=== PATIENT | female | born 1950 | race Caucasian/White ===

== ENCOUNTER 2018-06-07 17:09 | Inpatient (IN) | payer MEDICARE, OTHER ==
[~2018-06-07] VITALS: Ht 162.6 cm; Wt 41.9 kg
--- NOTE | 2018-06-07 17:10 | NUR ---
BIB PRIVATE AMBULANCE FROM [facility] FOR SOB X 1 WEEK , VSS , PLACED ON 2LPM NC , CALLED RT FOR BREATHING TX
[2018-06-07 18:24] LABS: HEMATOCRIT 28 % (33-45); HEMOGLOBIN 9.3 g/dL (11.5-14.8); MEAN CORPUSCULAR HGB CONC 33 g/dl (31.0-36.0); MEAN CORPUSCULAR VOLUME 77 fL (82-100); PLATELET COUNT (AUTO) 229 /CMM (150-450); RDW COEFFICIENT OF VARIATION 20.1 (11.5-15.0); RED BLOOD CELL COUNT(AUTO) 3.66 MIL/uL (4.0-5.2); WHITE BLOOD COUNT (AUTO) 8.9 K/uL (4.3-11.0)
[2018-06-07 18:28] LABS: CALCIUM, SERUM 9.7 mg/dL (8.5-10.1); CARBON DIOXIDE 32 mmol/L (21-32); CHLORIDE 105 mmol/L (98-107); CREATININE 0.9 mg/dL (0.6-1.3); GLUCOSE 83 mg/dL (74-106); SODIUM SERUM 143 mmol/L (136-145); UREA NITROGEN, BLOOD 16 mg/dL (7-18)
[2018-06-07] MEDS ORDERED: IPRATROPIUM NEB FS 0.5 MG/2.5 ML AMPUL.NEB NEB ONE (18:30)
[2018-06-07] MEDS ORDERED: ALBUTEROL FS 2.5 MG/3 ML VIAL.NEB NEB ONE (18:30)
[2018-06-07] MEDS ORDERED: methylPREDNISolone SOD SUCC 125 MG/2ML VIAL IV ONE (18:30)
[2018-06-07] MEDS ORDERED: methylPREDNISolone SOD SUCC 125 MG/2ML VIAL ONE (18:33)
[2018-06-07 18:35] LABS: TROPONIN I < 0.017 ng/mL (0.00-0.056)
[2018-06-07 18:40] LABS: ALANINE AMINOTRANSFERASE 27 U/L (12-78); ALBUMIN 2.8 g/dL (3.4-5.0); ALKALINE PHOSPHATASE 137 U/L (46-116); ASPARTATE AMINOTRANSFERASE 32 U/L (15-37); B-TYPE NATRIURETIC PEPTIDE 27819 PG/ML (0-125); BILIRUBIN,DIRECT 0.2 mg/dL (0.0-0.2); BILIRUBIN,TOTAL 0.4 mg/dL (0.2-1.0)
--- NOTE | 2018-06-07 19:09 | NUR ---
CALLED RT FOR BREATHING TX
[2018-06-07] MEDS ORDERED: IPRATROPIUM NEB FS 0.5 MG/2.5 ML AMPUL.NEB ONE ×2 (19:16→20:40)
[2018-06-07] MEDS ORDERED: ALBUTEROL FS 2.5 MG/3 ML VIAL.NEB ONE ×2 (19:16→20:40)
--- NOTE | 2018-06-07 19:27 | NUR ---
CALLED [facility] FOR THIS PATIENT ENGINE MECHANIC MD AGOSTO WAS PAGED AND NOW SPEAKING TO DR KWOK.
[2018-06-07] MEDS ORDERED: FERR325T23 PO (19:28)
[2018-06-07] MEDS ORDERED: LISI-607 PO (19:28)
[2018-06-07] MEDS ORDERED: OXYB5TAB11 PO (19:28)
[2018-06-07] MEDS ORDERED: CARV3.122 PO (19:28)
[2018-06-07] MEDS ORDERED: ASPI-1169 PO (19:28)
[2018-06-07] MEDS ORDERED: DOCU100C36 PO (19:28)
[2018-06-07] MEDS ORDERED: GABA-532 PO (19:28)
[2018-06-07] MEDS ORDERED: METH10TA2 PO (19:28)
[2018-06-07] MEDS ORDERED: FLUO10TA PO (19:28)
[2018-06-07] MEDS ORDERED: DEXT15DR6 EACHEYE (19:28)
[2018-06-07] MEDS ORDERED: FURO20TA4 PO (19:28)
[2018-06-07] MEDS ORDERED: NITROGLYCERIN PACKET 1 GM PACKET TOP ONE (19:30)
[2018-06-07] MEDS ORDERED: FUROSEMIDE 40 MG/4 ML VIAL IV ONE (19:30)
[2018-06-07 19:32] LABS: LYMPHOCYTES % (MANUAL) 24 % (16-48); MONOCYTES % (MANUAL) 4 % (0-11.0); NEUTROPHILS % (MANUAL) 72 (42-76)
[2018-06-07] MEDS ORDERED: MAGNESIUM HYDROXIDE 30 ML UDC PO PRN (20:00)
[2018-06-07] MEDS ORDERED: Z GUARD REMEDY 2 OZ OINT TP PRN (20:00)
[2018-06-07] MEDS ORDERED: MAG HYDROX/AL HYDROX/SIMETH 30 ML UDC PO PRN (20:00)
[2018-06-07] MEDS ORDERED: DOCUSATE SODIUM 100 MG CAPSULE PO PRN (20:00)
[2018-06-07] MEDS ORDERED: ONDANSETRON HCL/PF 4 MG/2 ML VIAL IVP PRN (20:00)
[2018-06-07] MEDS ORDERED: ZOLPIDEM TARTRATE 5 MG TABLET PO PRN (20:00)
[2018-06-07] MEDS ORDERED: ALBUTEROL FS 2.5 MG/0.5 ML VIAL.NEB NEB PRN (20:00)
[2018-06-07] MEDS ORDERED: ACETAMINOPHEN 325 MG TABLET PO PRN (20:00)
[2018-06-07] MEDS ORDERED: IPRATROPIUM NEB FS 0.5 MG/2.5 ML AMPUL.NEB NEB PRN (20:00)
[2018-06-07] MEDS ORDERED: HYDROCODONE/APAP 5/325MG 1 EACH TABLET PO PRN (20:00)
--- NOTE | 2018-06-07 20:05 | NUR ---
CALLED NURSING SUP REQUESTED TELE BED FOR THIS PATIENT
[2018-06-07] MEDS ORDERED: FUROSEMIDE 40 MG/4 ML VIAL ONE (20:08)
[2018-06-07] MEDS ORDERED: NITROGLYCERIN PACKET 1 GM PACKET ONE (20:08)
--- NOTE | 2018-06-07 20:53 | NUR ---
ECHOCARDIOGRAM AT BEDSIDE FOLLOWING BREATHING TX
--- NOTE | 2018-06-07 21:08 | NUR ---
PT REFUSED TO DO ECHOCARDIOGRAM DUE TO DIFFICULTY IN BREATHING. TRY LATER.
--- NOTE | 2018-06-07 21:22 | NUR ---
REAL ESTATE AGENCY PRINCIPAL OPENING NOTES: RECEIVED PT ON 2LPM VIA NC AND IS TOLERATING WELL. NO SOB NOTED. NO S/S OF DISTRESS. PT IS A/OX4. PT HAS IV AND IS CURRENTLY H/L. PT TO BE PLACED ON TELE BOX. CALL LIGHT WITHIN PT'S REACH. BED KEPT IN LOW, LOCKED POSITION, HIGH-FOWLERS, AND SIDE RAILS X 2UP. BED ALARM ACTIVATED. WILL CONTINUE TO MONITOR PT. Addendum: 06/08/18 at 0523 by ANUP MICHAEL RN NOTED NITROBID PATCH ON CHEST.
[2018-06-07 21:43] VITALS: BP 157/81
--- NOTE | 2018-06-07 22:13 | NUR ---
PT AGAIN REFUSED ECHO TEST AND WANTS TO HAVE IT DONE BRIAN. INFORMED ATTENDING RN (HUE)
--- NOTE | 2018-06-07 22:16 | NUR ---
HYPERION ANALYST NOTES: DR. TRINY Graf AT BEDSIDE.
[2018-06-07] MEDS ORDERED: LEVOFLOXACIN 750 MG /D5W 150ML 150 ML IV ONE (22:40)
[2018-06-07] MEDS: ENOXAPARIN SODIUM 40 MG/0.4 ML DISP.SYRIN SQ SCH (22:43)
[2018-06-07] MEDS: LEVOFLOXACIN 750 MG /D5W 150ML 750 MG in PREMIX 1 EA IV SCH (22:47)
[2018-06-07] MEDS: methylPREDNISolone SOD SUCC 40 MG/ML VIAL IV SCH (23:42)
[2018-06-08 00:48] VITALS: BP 133/84
[2018-06-08] MEDS: FUROSEMIDE 40 MG/4 ML VIAL IV SCH ×4 (01:16→17:10)
--- NOTE | 2018-06-08 03:33 | NUR ---
FACTORY SUPERVISOR NOTES: PT'S MONEY PLACED IN [employer]. TOTAL OF $240 DOLLARS. COSIGNED WITH TORREY KWOK[employer].
[2018-06-08 04:32] VITALS: BP 131/84
[2018-06-08] MEDS: methylPREDNISolone SOD SUCC 40 MG/ML VIAL IV SCH ×3 (05:32→17:10)
--- NOTE | 2018-06-08 07:10 | NUR ---
ENTRY LEVEL ELECTRICIAN INITIAL NOTES Report received at bedside. Patient received in bed, intermittently sleeping, easily aroused, verbally responsive. On continuous oxygen therapy @2LPM via nasal cannula with no SOB noted. Came in for CHF, COPD exacerbation. Tele: Sinus Shimon; HR 40s-50s. Bedside commode noted. Left hand #20g IV access noted. Safety measures in place. Will continue to monitor and assess patient.
[2018-06-08 07:28] LABS: CALCIUM, SERUM 9.3 mg/dL (8.5-10.1); CREATININE 1.2 mg/dL (0.6-1.3); MAGNESIUM 1.7 mg/dL (1.8-2.4); PHOSPHORUS 4.8 mg/dL (2.5-4.9); POTASSIUM 4.2 mmol/L (3.5-5.1)
[2018-06-08 07:33] LABS: THYROID STIMULATING HORMONE 0.753 uIU/mL (0.358-3.74)
[2018-06-08 08:00] VITALS: BP 135/81
[2018-06-08] MEDS: POLYVINYL ALCOHOL 15 ML BOTTLE OP SCH ×2 (08:39→16:31)
[2018-06-08] MEDS: LISINOPRIL (5MG) 5 MG TABLET PO SCH (08:41)
[2018-06-08] MEDS: FERROUS SULFATE (325 MG) 325 MG/TAB TABLET PO SCH ×2 (08:41→16:30)
[2018-06-08] MEDS: GABAPENTIN 100 MG CAPSULE PO SCH ×3 (08:41→16:30)
[2018-06-08] MEDS: FLUOXETINE HCL 20 MG/5 ML UDC PO SCH (08:41)
[2018-06-08] MEDS: OXYBUTYNIN CHLORIDE 5 MG TABLET PO SCH ×3 (08:41→16:29)
[2018-06-08 08:57] LABS: IRON, SERUM 33 ug/dl (50-175); TOTAL IRON BINDING CAPACITY 406 ug/dl (250-450)
[2018-06-08] MEDS ORDERED: ASPIRIN 81 MG TAB.CHEW PO SCH (09:00)
[2018-06-08 09:08] LABS: CHOLESTEROL 114 mg/dL (<200); FERRITIN 88 ng/mL (8-388); HDL CHOLESTEROL 60 mg/dL (40-60); LDL 50 mg/dL (0-99); TRIGLYCERIDES 46 mg/dL (30-150)
[2018-06-08] MEDS: Magnesium 1GM/D5W 100ML PREMIX 100 ML IV SCH ×2 (09:15→10:04)
[2018-06-08 10:36] LABS: HEMATOCRIT 33 % (33-45); HEMOGLOBIN 9.9 g/dL (11.5-14.8); MEAN CORPUSCULAR HGB CONC 30 g/dl (31.0-36.0); MEAN CORPUSCULAR VOLUME 79 fL (82-100); PLATELET COUNT (AUTO) 250 /CMM (150-450); RDW COEFFICIENT OF VARIATION 21.9 (11.5-15.0); RED BLOOD CELL COUNT(AUTO) 4.16 MIL/uL (4.0-5.2); WHITE BLOOD COUNT (AUTO) 7.6 K/uL (4.3-11.0)
[2018-06-08 11:44] LABS: LYMPHOCYTES % (MANUAL) 7 % (16-48); MONOCYTES % (MANUAL) 5 % (0-11.0); NEUTROPHILS % (MANUAL) 88 (42-76)
--- NOTE | 2018-06-08 12:08 | NUR ---
MS RN - Rx VERIFICATION NOTES Called [facility] [phone] and spoke to Aide ([employer]) to verify Methadone dose and frequency given while pt was at their facility. Relayed information to Hugh ([facility]).
[2018-06-08] MEDS: METHADONE HCL 10 MG TABLET PO SCH (12:58)
--- NOTE | 2018-06-08 13:03 | NUR ---
MS RN - NOTES When patient was asked for pain scale/description, pt denies any pain at the moment. But patient stated that Methadone helps relieved the pain for 2 years now. Explained risks vs benefits
[2018-06-08 16:00] VITALS: BP 130/74
--- NOTE | 2018-06-08 19:18 | NUR ---
MS RN CLOSING NOTES Report given at bedside. Patient remained in bed, intermittently dosing, easily aroused. Alert and oriented x4, verbally responsive. Denies any pain. On continuous oxygen therapy @2-3lpm via nasal cannula with no SOB/labored breathing noted. Not in any type of distress. IV on left hand@20g SL: patent and intact. Afebrile. Magnesium replaced. Diet: 2g NA with Ensure Enlive BID per diet recommendation. Continue on steroids, diuretics, atbx and breathing treatment. Bed in locked and lowest position with bed alarm on and call light within reach. Commode at bedside. Continue to reinforce to call for assistance with anything especially getting up from bed to commode. All needs anticipated and met. Endorsed to oncoming shift nurse.
--- NOTE | 2018-06-08 19:30 | NUR ---
RN INITIAL NOTES Patient received in bed, a & o x 4, sitting in a chair next to her bed, verbally responsive. On continuous oxygen therapy @2LPM via nasal cannula with no SOB noted. no c/o pain, no acute distress noted. IV access to left hand, SL. no s/s of infection noted. Came in for CHF, COPD exacerbation. Bedside commode noted. bed in low locked position. Safety measures in place. call light within reach. Will continue to monitor the patient closely.
[2018-06-08 20:00] VITALS: BP 107/69
--- NOTE | 2018-06-08 21:45 | NUR ---
GRAND DAUGHTER VISITED PATIENT'S GRAND DAUGHTER VISITED, PT REQUESTED TO GET $40 FROM [employer] TO GIVE TO HER GRAND DTR. MFG ASSOC SUNDAR MADE AWARE, $ 40 GIVEN TO THE PATIENT FROM [employer] & REMAINING AMOUNT & ITEMS PUT BACK IN THE [employer]AF[employer] BY RN & MFG ASSOC PER PROTOCOL. WILL CONTINUE TO MONITOR THE PT CLOSELY.
[2018-06-08] MEDS: ENOXAPARIN SODIUM 40 MG/0.4 ML DISP.SYRIN SQ SCH (21:56)
[2018-06-08] MEDS: LEVOFLOXACIN 750 MG /D5W 150ML 750 MG in PREMIX 1 EA IV SCH (23:06)
[2018-06-09] MEDS: methylPREDNISolone SOD SUCC 40 MG/ML VIAL IV SCH ×4 (00:08→17:50)
--- NOTE | 2018-06-09 06:00 | NUR ---
MS RN NOTE PATIENT'S WEIGHT WAS CHECKED BY MERYL JAMIL, ON CHAIR SCALE, NOT ON BED & NOTED TO BE 107 LBS IN AM.
--- NOTE | 2018-06-09 06:23 | NUR ---
MS RN CLOSING NOTES PT SLEPT INTERMITTENTLY AT NIGHT. A & O X 4, NO SOB, NO ACUTE DISTRESS NOTED. NO C/O PAIN VERBALIZED. AMBULATORY TOLERATED WITH WALKER. IV ACCESS TO LEFT HAND, SL, INTACT PATENT. HAD SNACKS AT NIGHT, TOLERATED WELL. ALL DUE MEDS GIVEN ORDERED. USES BSC. ON O2 VIA NC, SATTING @ 96%. ALL NEEDS MET. SAFETY MEASURES IN PLACE. BED IN LOW LOCKED POSITION. CALL LIGHT WITHIN REACH. WILL ENDORSE TO AM RN FOR CONTINUITY OF CARE.
[2018-06-09 07:40] LABS: ALBUMIN 2.9 g/dL (3.4-5.0); BILIRUBIN,TOTAL 0.3 mg/dL (0.2-1.0); CALCIUM, SERUM 9.2 mg/dL (8.5-10.1); CREATININE 1.4 mg/dL (0.6-1.3); MAGNESIUM 2.3 mg/dL (1.8-2.4); PHOSPHORUS 4.8 mg/dL (2.5-4.9); POTASSIUM 4.3 mmol/L (3.5-5.1); TOTAL PROTEIN, SERUM 7.4 g/dL (6.4-8.2)
--- NOTE | 2018-06-09 07:59 | NUR ---
MS RN INITIAL NOTES Report received. Patient received in chair, awake and watching tv. Alert and oriented x4, verbally responsive. Denies any pain at the moment. On oxygen therapy with no SOB noted. Not in any type of distress. Reported weight 107lbs using chair scale. On daily weight monitoring. Safety measures in place. Will continue to monitor and assess patient
[2018-06-09 08:00] VITALS: BP 127/89
[2018-06-09] MEDS: METHADONE HCL 10 MG TABLET PO SCH (08:50)
[2018-06-09] MEDS: DOCUSATE SODIUM 100 MG CAPSULE PO SCH ×2 (08:50→16:32)
[2018-06-09] MEDS: GABAPENTIN 100 MG CAPSULE PO SCH ×3 (08:50→16:32)
[2018-06-09] MEDS: OXYBUTYNIN CHLORIDE 5 MG TABLET PO SCH ×3 (08:52→16:32)
[2018-06-09] MEDS: LISINOPRIL (5MG) 5 MG TABLET PO SCH (08:52)
[2018-06-09] MEDS: FLUOXETINE HCL 20 MG/5 ML UDC PO SCH (08:53)
[2018-06-09] MEDS: POLYVINYL ALCOHOL 15 ML BOTTLE OP SCH ×2 (08:54→16:32)
--- NOTE | 2018-06-09 08:55 | NUR ---
MS RN - MANUAL ADMINISTRATION Articificial tears - patient removed barcode. unable to scan eye drops
[2018-06-09 09:58] LABS: HEMATOCRIT 32 % (33-45); HEMOGLOBIN 9.6 g/dL (11.5-14.8); MEAN CORPUSCULAR HGB CONC 30 g/dl (31.0-36.0); MEAN CORPUSCULAR VOLUME 79 fL (82-100); PLATELET COUNT (AUTO) 265 /CMM (150-450); RDW COEFFICIENT OF VARIATION 22.1 (11.5-15.0); RED BLOOD CELL COUNT(AUTO) 4.02 MIL/uL (4.0-5.2); WHITE BLOOD COUNT (AUTO) 16.2 K/uL (4.3-11.0)
[2018-06-09 10:19] LABS: BAND % (MANUAL) 1 % (0.0-5.0); LYMPHOCYTES % (MANUAL) 1 % (16-48); MONOCYTES % (MANUAL) 3 % (0-11.0); NEUTROPHILS % (MANUAL) 95 (42-76)
[2018-06-09] MEDS: SOD FERRIC GLUC 125 MG in IV NS 0.9% 100 ML IV SCH (14:02)
--- NOTE | 2018-06-09 14:15 | NUR ---
MS RN NOTES Caught patient had a cigarette. Explained to patient that the oxygen is on just in case she experiences SOB and it is highly dangerous to smoke in the hospital, especially inside the room with oxygen turned on. Patient verbalized understanding. handed hidden cigarettes in purse to me. Placed in nurses' station.
[2018-06-09 16:00] VITALS: BP 124/75
--- NOTE | 2018-06-09 18:59 | NUR ---
MS RN CLOSING NOTES Patient in bed, awake, and verbally responsive. Alert and priented x4. Denies any pain at the moment. On oxygen therapy PRN for SOB. No SOB/labored breathing noted. Not in any type of distress. IV on left hand #20g: patent and intact. Afebrile. Continue on current treatment: antibiotics, steroids, pain mgmt, diuretics, and breathing tx. Bed in locked and lowest position with call light within reach. Continue to encourage patient to increase oral/caloric intake. Reinforce to call for assistance. Non-compliant with smoking and becomes verbally aggressive. On contact isolation for MRSA nares. All needs anticipated and met. All due meds given and tolerated. Safety measures in place. Will endorse to oncoming shift nurse
[2018-06-09 20:00] VITALS: BP 136/74
--- NOTE | 2018-06-09 20:00 | NUR ---
MS NIDIA INITIAL NOTES RECEIVED REPORT FROM AM NURSE WHILE CHECKING THE PATIENT. PT SITTING ON THE CHAIR WHILE EATING HER FOODS. DENIES ANY PAIN OR ANY DISCOMFORT. BREATHING EVEN AND NON-LABORED , NOT IN ANY ACUTE DISTRESS NOTED. ON CONTACT ISOLATION MRSA NARES. ISOLATION PRECAUTION IMPLEMENTED AND OBSERVED. KEPT HER WARM AND COMFORTABLE AT ALL TIMES. PLACE CALL LIGHT AT REACH.WILL CONTINUE MONITORING.
[2018-06-09] MEDS: MUPIROCIN OINT 2% 22 GM TUBE SCH (22:20)
[2018-06-09] MEDS: ENOXAPARIN SODIUM 40 MG/0.4 ML DISP.SYRIN SQ SCH (22:22)
[2018-06-09] MEDS: LEVOFLOXACIN 750 MG /D5W 150ML 750 MG in PREMIX 1 EA IV SCH (22:28)
--- NOTE | 2018-06-10 | NUR ---
MS CLINICAL DOCUMENTATION NURSE NOTES SLEEPING AT THIS TIME WITHOUT ANY ACUTE DISTRESS NOTED. KEPT HER WARM AND COMFORTABLE AT ALL TIMES. WILL CONTINUE MONITORING. PLACE CALL LIGHT AT REACH.
[2018-06-10] MEDS: methylPREDNISolone SOD SUCC 40 MG/ML VIAL IV SCH ×4 (01:10→16:50)
--- NOTE | 2018-06-10 07:30 | NUR ---
MS POTTER OR CERAMIC ARTIST CLOSING NOTES PT SLEEPING AT THIS TIME. BREATHING EVEN AND NON-LABORED. STABLE MOISES THE NIGHTS. ALL DUE MEDS GIVEN AND ALL NEEDS MET. KEPT HER WARM AND COMFORTABLE AT ALL TIMES. PLACE CALL LIGHT AT REACH. ENDORSE TO AM NURSE FOR CONTINUITY OF CARE.
[2018-06-10 08:00] VITALS: BP 134/98
--- NOTE | 2018-06-10 08:00 | NUR ---
MS HSIEH AM NOTES Report received. Patient received in chair, awake and watching tv. Alert and oriented x4, verbally responsive. Denies any pain at the moment. On room air with no SOB noted. Not in any type of distress. Ambulates ad pierce using FWW.On MRSA contact isolation precautions for MRSA Nares.Reported weight 107lbs using chair scale. On daily weight monitoring. Safety measures in place. Will continue to monitor and assess patient.Call light placed within reach.
[2018-06-10] MEDS: FLUOXETINE HCL 20 MG/5 ML UDC PO SCH (09:20)
[2018-06-10] MEDS: MUPIROCIN OINT 2% 22 GM TUBE SCH (09:20)
[2018-06-10] MEDS: DOCUSATE SODIUM 100 MG CAPSULE PO SCH ×2 (09:21→16:29)
[2018-06-10] MEDS: OXYBUTYNIN CHLORIDE 5 MG TABLET PO SCH ×3 (09:21→16:29)
[2018-06-10] MEDS: GABAPENTIN 100 MG CAPSULE PO SCH ×3 (09:25→16:29)
[2018-06-10] MEDS: LISINOPRIL (5MG) 5 MG TABLET PO SCH (09:25)
[2018-06-10] MEDS: METHADONE HCL 10 MG TABLET PO SCH (09:26)
--- NOTE | 2018-06-10 10:00 | NUR ---
SEEN BY DR MONTES WALKING AROUND THE HALLWAY WITH MANUFACTURING TEACHER ASSIST ON ROOM AIR O2 SAT RANGING FROM 99-100% WITH NO C/O SOB OR DISTRESS.DR MONTES VERBALIZED THAT ITS OK TO DC PT WITHOUT O2.PT ALSO ASKS TO SMOKE OUTSIDE ACCOMPANIED BY MANUFACTURING TEACHER.NO DISTRESS NOTED.
[2018-06-10] MEDS: POLYVINYL ALCOHOL 15 ML BOTTLE OP SCH ×2 (10:47→16:29)
[2018-06-10] MEDS: SOD FERRIC GLUC 125 MG in IV NS 0.9% 100 ML IV SCH (15:20)
[2018-06-10 16:00] VITALS: BP 132/76
--- NOTE | 2018-06-10 16:21 | NUR ---
DISCHARGE INSTRUCTIONS AND RX GIVEN TO THE PT.IV H/L WAS REMOVED BY PT HERSELF.NO BLEEDING NOTED.AWAITING FOR THE RN ASSISTANT WOMEN'S BASKETBALL COACH'S AVAILABILITY TO OPEN THE SAFE TO GET PT'S $200.PT DENIES ANY DISTRESS OR DISCOMFORT.PT WALKING AROUND HER ROOM WITH NO C/O SOB OR DISTRESS NOTED.
--- NOTE | 2018-06-10 18:00 | NUR ---
DISCHARGED PT BACK TO [facility] VIA [facility]I VOUCHER WITH STABLE V/S DENYING ANY PAIN OR DISTRESS.BROUGHT THE MOBILE O2 TANK,HER $200,CA ID,PURSE,BELONGINGS AND CREDIT CARD.
== END 2018-06-10 18:04 | DRG 139 ==
LOC: ER 17:26 → TELE 21:08 → MED 06-08 12:52
DX: J15.9 Unspecified bacterial pneumonia (principal); I50.43 Acute on chronic combined systolic (congestive) and diastolic (congestive) heart failure; E44.0 Moderate protein-calorie malnutrition; K74.60 Unspecified cirrhosis of liver; I13.0 Hypertensive heart and chronic kidney disease with heart failure and stage 1 through stage 4 chronic kidney disease, or unspecified chronic kidney disease; N18.3 Chronic kidney disease, stage 3 (moderate); J44.0 Chronic obstructive pulmonary disease with (acute) lower respiratory infection; J44.1 Chronic obstructive pulmonary disease with (acute) exacerbation; B19.20 Unspecified viral hepatitis C without hepatic coma; E83.42 Hypomagnesemia; D63.8 Anemia in other chronic diseases classified elsewhere; F17.210 Nicotine dependence, cigarettes, uncomplicated; F20.9 Schizophrenia, unspecified; E88.09 Other disorders of plasma-protein metabolism, not elsewhere classified; F19.11 Other psychoactive substance abuse, in remission; F11.10 Opioid abuse, uncomplicated; Z68.1 Body mass index [BMI] 19.9 or less, adult
CPT/HCPCS: 36415; 71045-TC; 80048-TC; 80053-TC; 80061-TC; 80076-TC; 82728-TC; 83540-TC; 83735-TC; 83880; 84100-TC; 84443-TC; 84484-TC; 85025-TC; 87081-TC; 93307-TC; A4216; A4606; G0378; J1650; J1940; J1956; J2916; J2920; J2930; J3475; J7030; J7050; Z7610

== ENCOUNTER 2018-09-15 00:37 | Emergency (ER) | payer MEDICARE, OTHER ==
[~2018-09-15] VITALS: Ht 162.6 cm; Wt 49.9 kg
[~2018-09-15 00:37] MED LIST: ASPI-1169 PO; CARV3.122 PO; DEXT15DR6 EACHEYE; DOCU100C36 PO; FERR325T23 PO; FLUO10TA PO; FURO20TA4 PO; GABA-532 PO; LISI-607 PO; METH10TA2 PO; OXYB5TAB11 PO
[2018-09-15 01:00] VITALS: BP 132/92
--- NOTE | 2018-09-15 01:00 | NUR ---
PT BIB PA. COMP OF HAVING A FALL OUT OF BED R KNEE PAIN NOTED. NO HEAD INJURY. NO AUCTE DISTRESS AT THIS TIME. PT AOX3. AWAITING EVAL.
--- NOTE | 2018-09-15 02:05 | NUR ---
PT REFUSING ALL LABS/IMAGING AND CARE FROM STAFF. BEING SIGNED AMA AND TRANSFERRED TO FACILITY.
== END 2018-09-15 02:08 | disposition left against medical advice (07) ==
LOC: ER 00:48
DX: M25.561 Pain in right knee (principal); I13.0 Hypertensive heart and chronic kidney disease with heart failure and stage 1 through stage 4 chronic kidney disease, or unspecified chronic kidney disease; N18.3 Chronic kidney disease, stage 3 (moderate); I50.9 Heart failure, unspecified; J44.9 Chronic obstructive pulmonary disease, unspecified; F20.9 Schizophrenia, unspecified; F32.9 Major depressive disorder, single episode, unspecified; Z98.890 Other specified postprocedural states; F17.200 Nicotine dependence, unspecified, uncomplicated; Z79.82 Long term (current) use of aspirin; Z79.899 Other long term (current) drug therapy; W06.XXXA Fall from bed, initial encounter; Y93.89 Activity, other specified; Y92.89 Other specified places as the place of occurrence of the external cause; Y99.8 Other external cause status

== ENCOUNTER 2019-09-13 15:14 | Inpatient (IN) | payer MEDICARE, OTHER ==
[~2019-09-13] VITALS: Ht 162.6 cm; Wt 58.1 kg
[~2019-09-13 15:14] MED LIST changes: -OXYB5TAB11 PO; +OXYB5TAB16 PO
[2019-09-13] MEDS ORDERED: OFLO5DRO6 LEFTEYE (15:44)
[2019-09-13] MEDS ORDERED: PRED5DRO17 LEFTEYE (15:44)
[2019-09-13] MEDS ORDERED: KETO5DRO39 LEFTEYE (15:44)
[2019-09-13] MEDS ORDERED: DIPH25CA46 PO (15:44)
[2019-09-13] MEDS ORDERED: OLAN2.5T3 PO (15:44)
[2019-09-13] MEDS ORDERED: ATOR40TA PO (15:44)
[2019-09-13] MEDS ORDERED: SENN-261 PO (15:44)
[2019-09-13] MEDS ORDERED: TRAM50TA2 PO (15:44)
--- NOTE | 2019-09-13 16:40 | NUR ---
jyoti 68 year old female sent by PMD due to abnormal BUN/crea. alert and oriented x2, breathing even and unlabored with no distress noted. waiting to be seen by
--- NOTE | 2019-09-13 17:38 | NUR ---
cardio tech at bedside
[2019-09-13 18:06] LABS: BASOPHILS % (AUTO) 0.4 % (0.0-2.0); HEMATOCRIT 33 % (33-45); HEMOGLOBIN 10.8 g/dL (11.5-14.8); LYMPHOCYTES # (AUTO) 1.7 /CMM (0.8-4.8); LYMPHOCYTES % (AUTO) 18.2 % (20.0-44.0); MEAN CORPUSCULAR HGB CONC 32 g/dl (31.0-36.0); MEAN CORPUSCULAR VOLUME 87 fL (82-100); MONOCYTES # (AUTO) 0.9 /CMM (0.1-1.30); MONOCYTES % (AUTO) 9.1 % (2.0-12.0); NEUTROPHILS # (AUTO) 6.8 /CMM (1.8-8.9); NEUTROPHILS % (AUTO) 71.3 % (43.0-81.0); PLATELET COUNT (AUTO) 159 /CMM (150-450); RED BLOOD CELL COUNT(AUTO) 3.83 MIL/uL (4.0-5.2); WHITE BLOOD COUNT (AUTO) 9.5 K/uL (4.3-11.0)
--- NOTE | 2019-09-13 18:18 | NUR ---
REPORT WAS GIVEN TO OVIDIO
[2019-09-13 18:24] LABS: ALBUMIN 1.6 g/dL (3.4-5.0); BILIRUBIN,TOTAL 0.3 mg/dL (0.2-1.0); CALCIUM, SERUM 8.7 mg/dL (8.5-10.1); CREATININE 4.2 mg/dL (0.6-1.3); TOTAL PROTEIN, SERUM 6.1 g/dL (6.4-8.2)
--- NOTE | 2019-09-13 18:57 | NUR ---
PAGED DR LOWERY FOR ADMISSION
[2019-09-13] MEDS ORDERED: SODIUM POLYSTYRENE SULFONATE 15 G/60 ML BOTTLE PO ONE (19:00)
[2019-09-13] MEDS ORDERED: INSULIN REGULAR, HUMAN 100 UNIT/ML 10 ML VIAL IV ONE (19:00)
[2019-09-13] MEDS ORDERED: DEXTROSE 50%-WATER 50 ML DISP.SYRIN IV ONE (19:00)
[2019-09-13] MEDS ORDERED: ALBUTEROL FS 2.5 MG/3 ML VIAL.NEB NEB ONE (19:00)
[2019-09-13] MEDS ORDERED: SODIUM POLYSTYRENE SULFONATE 15 G/60 ML BOTTLE ONE (19:02)
[2019-09-13] MEDS ORDERED: DEXTROSE 50%-WATER 50 ML DISP.SYRIN ONE (19:02)
[2019-09-13] MEDS ORDERED: INSULIN REGULAR, HUMAN 100 UNIT/ML 10 ML VIAL ONE (19:02)
--- NOTE | 2019-09-13 19:12 | NUR ---
bs 109
[2019-09-13] MEDS ORDERED: ALBUTEROL FS 2.5 MG/3 ML VIAL.NEB ONE ×2 (19:21→20:04)
--- NOTE | 2019-09-13 19:21 | NUR ---
sow farm barn technician at bedside
--- NOTE | 2019-09-13 19:39 | NUR ---
PT RECEIVED FROM [facility] FOR KEO
[2019-09-13 20:00] VITALS: BP 143/109
--- NOTE | 2019-09-13 20:21 | NUR ---
REPORT CALLED TO [facility]. WILL TRANSPORT PT VIA ACLS PROTOCOL.
--- NOTE | 2019-09-13 20:25 | NUR ---
MADE AWARE OF BP 201/110. NNO RECEIVED AT THIS TIME
[2019-09-13] MEDS ORDERED: hydrALAZINE HCL IV 20 MG VIAL ONE (20:27)
[2019-09-13] MEDS: hydrALAZINE HCL IV 20 MG VIAL IV PRN (20:31)
--- NOTE | 2019-09-13 20:31 | NUR ---
RECEIVED ORDER TO GIVE APRESOLINE 10MG IV X 1 DOSE. BP WAS NOTEED AT 165/104 PRIOR TO ADMIN. MADE AWARE. ORDER TO CONTINUE.
--- NOTE | 2019-09-13 21:08 | NUR ---
PT TRANSPORTED TO UNIT ON GURNEY WITH EMT AND RN AT BEDSIDE W/ ACLS PROTOCOL. NAD NOTED DURING TRANSPORT.
--- NOTE | 2019-09-13 22:00 | NUR ---
BABBITTER NOTES ATTACHED TO CAREER TECHNICAL EDUCATION INSTRUCTOR WITH NSR AT 95bpm. CALLED FOR ADMISSION ORDERS PER CHAIN SALES REPRESENTATIVE DR.DAVID MATAMOROS IS THE ON-CALL, LEFT A MESSAGE.
--- NOTE | 2019-09-13 22:00 | NUR ---
MERCHANDISE HANDLERBANKING MANAGEMENT CONSULTING MANAGER NOTES RECEIVED PATIENT FROM ER VIA RNEY ACCOMPANIED BY ER STAFF. ALERT AND ORIENTED X 3 VERBALLY RESPONSIVE AND ABLE TO FOLLOW DIRECTIONS. BREATHING REGULAR AND UNLABORED ON ROOM AIR. RIGHT HAND G20 IV LINE INTACT AND PATENT, FLUSHING WELL WITH NO BLEEDING OR S/S OF INFILTRATION NOTED. BODY ASSESSMENT DONE, SEEN WITH BOTH LOWER LEG WOUNDS AND SCABS AND UMBILICAL AREA HERNIA. PHOTOS TAKEN, ATTACHED TO CHART. BELONGINGS CHECKED BY WATCH ASSEMBLY INSTRUCTOR ACCOUNTED BY THE PATIENT. PATIENT WISHES TO BE FULL CODE. NO COMPLAINTS OF PAIN/DISCOMFORT REPORTED. BED LOW AND LOCKED ON SEMI FOWLERS POSITION. CALL LIGHT IN REACH. WILL CONTINUE TO MONITOR.
--- NOTE | 2019-09-13 22:30 | NUR ---
MARKET SUPERINTENDENT NOTES CALLED DR.DAVID MATAMOROS AGAIN AND LAYO STACY, LEFT A MESSAGE AGAIN.
--- NOTE | 2019-09-13 23:00 | NUR ---
PIPELINE TECHNICIAN NOTES CALLED FOR THE 3RD TIME SPOKE TO WITH ORDERS RECEIVED AND CARRIED OUT. NOTIFIED MD REGARDING PATIENT WISH TO BE FULL CODE.
--- NOTE | 2019-09-14 | NUR ---
COURT RN NOTES SPOKE TO LAYO STACY WITH ORDERS RECEIVED AND CARRIED OUT.
[2019-09-14 00:01] VITALS: BP 160/101
[2019-09-14] MEDS: IV NS 0.9% 1,000 ML BAG IV PRN (01:20)
[2019-09-14] MEDS: hydrALAZINE HCL IV 20 MG VIAL IV PRN ×3 (01:23→17:44)
--- NOTE | 2019-09-14 01:23 | NUR ---
TRADE EMBALMER NOTES BP 164/101 HR 95, HYDRALAZINE 10MG GIVEN VIA IV PUSH. WILL CONTINUE TO MONITOR.
--- NOTE | 2019-09-14 02:00 | NUR ---
ENTERTAINMENT DANCER NOTES RIGHT HAND IV LINE INFILTRATED, NEW LINE REINSERTED ON LEFT HAND G24 WITH BLOOD BACKFLOW INFUSING WELL.
[2019-09-14 04:00] VITALS: BP 169/98
--- NOTE | 2019-09-14 05:25 | NUR ---
THROUGH FREIGHT ENGINEER NOTES BP 169/98 HR 94, HYDRALAZINE 10MG GIVEN VIA IV PUSH. WILL CONTINUE TO MONITOR.
--- NOTE | 2019-09-14 06:20 | NUR ---
COLOR ADVISER CLOSING NOTES PATIENT IN BED ALERT AND ORIENTED X 3 VERBALLY RESPONSIVE AND ABLE TO FOLLOW DIRECTIONS. BREATHING REGULAR AND UNLABORED ON ROOM AIR. RIGHT HAND G20 IV LINE INTACT AND INFUSING WELL. COMPLAINED OF 3/10 RIGHT LEG PAIN, NON-PHARMACOLOGICAL INTERVENTIONS PROVIDED. BED LOW AND LOCKED ON SEMI FOWLERS POSITION. CALL LIGHT IN REACH. WILL ENDORSE TO MORNING SHIFT FOR KEO.
[2019-09-14 07:21] LABS: BASOPHILS # (AUTO) 0.1 /CMM (0.0-0.2); BASOPHILS % (AUTO) 0.5 % (0.0-2.0); EOSINOPHILS % (AUTO) 0.5 % (0.0-6.0); HEMATOCRIT 33 % (33-45); HEMOGLOBIN 10.7 g/dL (11.5-14.8); LYMPHOCYTES # (AUTO) 1.8 /CMM (0.8-4.8); LYMPHOCYTES % (AUTO) 13.9 % (20.0-44.0); MEAN CORPUSCULAR HGB CONC 32 g/dl (31.0-36.0); MEAN CORPUSCULAR VOLUME 85 fL (82-100); MONOCYTES # (AUTO) 1.2 /CMM (0.1-1.30); MONOCYTES % (AUTO) 9.5 % (2.0-12.0); NEUTROPHILS # (AUTO) 9.5 /CMM (1.8-8.9); NEUTROPHILS % (AUTO) 75.6 % (43.0-81.0); PLATELET COUNT (AUTO) 182 /CMM (150-450); RED BLOOD CELL COUNT(AUTO) 3.92 MIL/uL (4.0-5.2); WHITE BLOOD COUNT (AUTO) 12.6 K/uL (4.3-11.0)
[2019-09-14 07:46] LABS: THYROID STIMULATING HORMONE 2.187 uIU/mL (0.358-3.74)
[2019-09-14 07:51] LABS: CALCIUM, SERUM 8.3 mg/dL (8.5-10.1); CREATININE 3.9 mg/dL (0.6-1.3); POTASSIUM 4.6 mmol/L (3.5-5.1)
[2019-09-14 08:00] VITALS: BP 151/86
--- NOTE | 2019-09-14 08:00 | NUR ---
THREAD DRAWER AM NOTES PATIENT IN BED ALERT AND ORIENTED X 3 COMFORTABLY SLEEPING BUT AROUSABLE. VERBALLY RESPONSIVE AND ABLE TO FOLLOW DIRECTIONS. BREATHING REGULAR AND UNLABORED ON ROOM AIR. WITH RIGHT HAND G20 IV LINE INTACT WITH IVF NS AT 75 ML/HR INFUSING WELL WHICH PT WANTS TO BE HELD AT THIS TIME INSPITE OF EXPLAINING ITS RISKS AND BENEFITS. REFUSED TO EAT BREAKFAST.BED LOW AND LOCKED ON SEMI FOWLERS POSITION. CALL LIGHT WITHIN REACH.
[2019-09-14] MEDS: CLONIDINE HCL 0.1 MG TABLET PO PRN (11:33)
[2019-09-14 11:42] VITALS: BP 166/88
[2019-09-14 16:00] VITALS: BP 159/94
[2019-09-14] MEDS ORDERED: TRAMADOL HCL 50 MG TABLET PO PRN (16:30)
[2019-09-14] MEDS ORDERED: OFLOXACIN 0.3% OPHTH 5 ML BOTTLE LEFTEYE SCH (17:00)
[2019-09-14] MEDS ORDERED: prednisoLONE ACETATE 1% SUSP 5 ML BOTTLE LEFTEYE SCH (17:00)
[2019-09-14] MEDS ORDERED: KETOROLAC EYE 0.5% 3 ML BOTTLE LEFTEYE SCH (17:00)
[2019-09-14] MEDS: OXYBUTYNIN CHLORIDE 5 MG TABLET PO SCH (17:44)
[2019-09-14] MEDS: GABAPENTIN 100 MG CAPSULE PO SCH (17:45)
[2019-09-14] MEDS: diphenhydrAMINE HCL 25 MG CAPSULE PO SCH (17:49)
--- NOTE | 2019-09-14 18:00 | NUR ---
PT REFUSED TO BE TURNED ON HER LEFT INSPITE OF EXPLAINING ITS RISKS AND BENEFITS.
--- NOTE | 2019-09-14 18:20 | NUR ---
PT RESTING IN BED DENYING ANY PAIN OR DISTRESS.WITH IVF NS RUNNING AT 75 ML/HR .CALL LIGHT PLACED WITHIN REACH.
[2019-09-14 20:00] VITALS: BP 149/90
[2019-09-14 20:24] LABS: BASOPHILS % (AUTO) 0.5 % (0.0-2.0); EOSINOPHILS % (AUTO) 0.7 % (0.0-6.0); HEMATOCRIT 31 % (33-45); LYMPHOCYTES # (AUTO) 1.3 /CMM (0.8-4.8); LYMPHOCYTES % (AUTO) 13.9 % (20.0-44.0); MEAN CORPUSCULAR HGB CONC 33 g/dl (31.0-36.0); MEAN CORPUSCULAR VOLUME 85 fL (82-100); MONOCYTES % (AUTO) 10.5 % (2.0-12.0); NEUTROPHILS # (AUTO) 7.1 /CMM (1.8-8.9); NEUTROPHILS % (AUTO) 74.4 % (43.0-81.0); PLATELET COUNT (AUTO) 144 /CMM (150-450); RED BLOOD CELL COUNT(AUTO) 3.59 MIL/uL (4.0-5.2); WHITE BLOOD COUNT (AUTO) 9.5 K/uL (4.3-11.0)
[2019-09-14 20:32] LABS: CALCIUM, SERUM 7.9 mg/dL (8.5-10.1); POTASSIUM 4.9 mmol/L (3.5-5.1)
--- NOTE | 2019-09-14 20:55 | NUR ---
Patient is alert, states she resides at [facility] [phone]. Per SNF caregiver- patient is non-ambulatory for more than six months now. She is confined to wheelchair most of the time and requires max assist with adl's. Has no homehealth reported. Will discuss with pcp Dr. Almaraz with dc plan disposition > SNF vs SNF. Addendum: 09/14/19 at 2054 by MARION RUIZ RN Amended: Links added.
[2019-09-14] MEDS: ATORVASTATIN 40 MG TABLET PO SCH (21:39)
[2019-09-14] MEDS: SENNOSIDES 8.6 MG TABLET PO SCH (21:39)
[2019-09-14] MEDS: OLANZAPINE 2.5 MG TABLET PO SCH (21:39)
--- NOTE | 2019-09-15 06:23 | NUR ---
MS RN NOTES AWAKE & RESPONSIVE. NOT IN ANY DISTRESS. NO SOB NOTED. WITH IVF INFUSING WELL. MONITORED ACCORDINGLY. CALL LIGHT WITHIN REACH. BED IN LOWEST POSITION. SR UP X 3 WITH BED ALARM FOR SAFETY. WILL ENDORSE TO NEXT SHIFT.
--- NOTE | 2019-09-15 07:15 | NUR ---
M/S RN NOTES PATIENT RESTING IN BED, NO RESPIRATORY DISTRESS, NO C/O PAIN AT THIS TIME. SKIN WARM TO TOUCH. IV ACCESS SITE INTACT AND PATENT. PATIENT'S NEEDS ATTENDED, BED ON LOWEST LOCKED POSITION, CALL LIGHT WITHIN REACH. WILL CONTINUE TO MONITOR.
[2019-09-15 08:00] VITALS: BP_SYST 129; BP_SYST 155; BP_DIAS 69; BP_DIAS 90
[2019-09-15] MEDS ORDERED: METHADONE HCL 10 MG TABLET PO SCH (09:00)
[2019-09-15] MEDS: GABAPENTIN 100 MG CAPSULE PO SCH ×3 (09:37→18:11)
[2019-09-15] MEDS: diphenhydrAMINE HCL 25 MG CAPSULE PO SCH ×2 (09:37→18:11)
[2019-09-15] MEDS: OXYBUTYNIN CHLORIDE 5 MG TABLET PO SCH ×3 (09:37→18:11)
[2019-09-15] MEDS ORDERED: IV NS 0.9% 1,000 ML IV PRN (10:10)
[2019-09-15 14:59] LABS: BASOPHILS % (AUTO) 0.5 % (0.0-2.0); EOSINOPHILS % (AUTO) 1.1 % (0.0-6.0); HEMATOCRIT 30 % (33-45); HEMOGLOBIN 9.8 g/dL (11.5-14.8); LYMPHOCYTES # (AUTO) 1.3 /CMM (0.8-4.8); LYMPHOCYTES % (AUTO) 17.3 % (20.0-44.0); MEAN CORPUSCULAR HGB CONC 33 g/dl (31.0-36.0); MEAN CORPUSCULAR VOLUME 86 fL (82-100); MONOCYTES # (AUTO) 0.7 /CMM (0.1-1.30); MONOCYTES % (AUTO) 8.9 % (2.0-12.0); NEUTROPHILS # (AUTO) 5.6 /CMM (1.8-8.9); NEUTROPHILS % (AUTO) 72.2 % (43.0-81.0); PLATELET COUNT (AUTO) 147 /CMM (150-450); RED BLOOD CELL COUNT(AUTO) 3.51 MIL/uL (4.0-5.2); WHITE BLOOD COUNT (AUTO) 7.8 K/uL (4.3-11.0)
[2019-09-15 15:17] LABS: BILIRUBIN,TOTAL 0.3 mg/dL (0.2-1.0); CALCIUM, SERUM 8.6 mg/dL (8.5-10.1); POTASSIUM 5.1 mmol/L (3.5-5.1); TOTAL PROTEIN, SERUM 5.3 g/dL (6.4-8.2)
[2019-09-15 15:21] LABS: ALBUMIN 1.2 g/dL (3.4-5.0)
--- NOTE | 2019-09-15 15:37 | NUR ---
M/S RN NOTES CRITICAL LAB VALUE REPORTED BY LUIS M FROM LAB, ALBUMIN AT 1.2. NOTIFIED DR. LOWERY.
[2019-09-15 16:00] VITALS: BP 146/101
[2019-09-15 19:30] VITALS: BP 155/70
--- NOTE | 2019-09-15 19:30 | NUR ---
MS RN NOTES PATIENT IN BED, AWAKE, ALERT AND ORIENTED X 4. BREATHING EVEN AND UNLABORED ON ROOM AIR. DENIES ACUTE RESPIRATORY DISTRESS, NO ACUTE PAIN. IV ON CHICHO #24G RUNNING NS AT 75ML/HR. CLEAN DRY AND INTACT. SHOWS NO SIGNS OF REDNESS, NO ACUTE PAIN. SAFETY PRECAUTION IN PLACE. BED LOWEST POSITION, LOCKED, AND CALL LIGHT KEPT WITHIN REACH. WILL CONTINUE TO MONITOR.
[2019-09-15 20:00] VITALS: BP 155/70
[2019-09-15] MEDS: OLANZAPINE 2.5 MG TABLET PO SCH (21:08)
[2019-09-15] MEDS: ATORVASTATIN 40 MG TABLET PO SCH (21:08)
[2019-09-15] MEDS: SENNOSIDES 8.6 MG TABLET PO SCH (21:08)
--- NOTE | 2019-09-16 06:29 | NUR ---
MS RN NOTES PATIENT IN BED, ASLEEP, ALERT AND ORIENTED X 4. BREATHING EVEN AND UNLABORED ON ROOM AIR. DENIES ACUTE RESPIRATORY DISTRESS, NO ACUTE PAIN. IV ON CHICHO #24G RUNNING NS AT 75ML/HR. CLEAN DRY AND INTACT. SHOWS NO SIGNS OF REDNESS, NO ACUTE PAIN. ALL DUE MEDICATIONS GIVEN. SAFETY PRECAUTION IN PLACE. BED LOWEST POSITION, LOCKED, AND CALL LIGHT KEPT WITHIN REACH. WILL ENDORSE TO ONCOMING NURSE.
--- NOTE | 2019-09-16 07:30 | NUR ---
MS/RN Patient received Patient recieved from shift production supervisor. A/O X3, vital signs stable, denies any pain or discomfort at this time. Heplock noted to be infiltrated and leaking fluids over linens. Will reinsert. Call ight within reach, will conitnue to monitor and ensure safety.
[2019-09-16 08:00] VITALS: BP_SYST 160; BP_SYST 168; BP_DIAS 81; BP_DIAS 99
[2019-09-16] MEDS: diphenhydrAMINE HCL 25 MG CAPSULE PO SCH ×2 (08:39→16:46)
[2019-09-16] MEDS: GABAPENTIN 100 MG CAPSULE PO SCH ×3 (08:39→16:46)
[2019-09-16] MEDS: OXYBUTYNIN CHLORIDE 5 MG TABLET PO SCH ×3 (08:39→16:46)
--- NOTE | 2019-09-16 12:30 | NUR ---
MS/RN S/B Dr Almaraz Seen by Dr Almaraz - urine to be sent for UA, midline ordered as patient hard stick and still refquires IV fluids. Morning labs ordered.
[2019-09-16 12:43] LABS: BASOPHILS # (AUTO) 0.1 /CMM (0.0-0.2); BASOPHILS % (AUTO) 0.9 % (0.0-2.0); EOSINOPHILS % (AUTO) 1.4 % (0.0-6.0); HEMATOCRIT 33 % (33-45); HEMOGLOBIN 10.6 g/dL (11.5-14.8); LYMPHOCYTES # (AUTO) 1.3 /CMM (0.8-4.8); LYMPHOCYTES % (AUTO) 17.1 % (20.0-44.0); MEAN CORPUSCULAR HGB CONC 33 g/dl (31.0-36.0); MEAN CORPUSCULAR VOLUME 86 fL (82-100); MONOCYTES # (AUTO) 0.7 /CMM (0.1-1.30); MONOCYTES % (AUTO) 9.4 % (2.0-12.0); NEUTROPHILS # (AUTO) 5.3 /CMM (1.8-8.9); NEUTROPHILS % (AUTO) 71.2 % (43.0-81.0); PLATELET COUNT (AUTO) 148 /CMM (150-450); WHITE BLOOD COUNT (AUTO) 7.4 K/uL (4.3-11.0)
--- NOTE | 2019-09-16 12:56 | NUR ---
MS/RN Urine Urine collected and sent to lab.
[2019-09-16 13:03] LABS: CALCIUM, SERUM 8.3 mg/dL (8.5-10.1); CREATININE 3.9 mg/dL (0.6-1.3); MAGNESIUM 1.8 mg/dL (1.8-2.4); PHOSPHORUS 4.4 mg/dL (2.5-4.9)
[2019-09-16 15:18] LABS: APPEARANCE,URINE CLEAR (CLEAR); BILIRUBIN,URINE NEGATIVE (NEGATIVE); BLOOD, URINE TRACE-INTA Ery/uL (NEGATIVE); COLOR,URINE YELLOW (YELLOW); KETONES,URINE NEGATIVE (NEGATIVE); NITRITE, URINE NEGATIVE (NEGATIVE); PROTEIN,URINE >=300 mg/dl (NEGATIVE); UGLUCOSE NEGATIVE (NEGATIVE); UROBILINOGEN,URINE 0.2 EU/dL (0.2)
[2019-09-16 15:43] LABS: BACTERIA,URINE 1+ /HPF (None Seen); LEUKOCYTE ESTERASE ,URINE 1+ (NEGATIVE); RBC,URINE 0-2 /HPF (0-2); SQUAMOUS EPITHELIAL CELL,UR Few /HPF (None Seen)
[2019-09-16 16:00] VITALS: BP 130/85
[2019-09-16] MEDS: IV NS 0.9% 1,000 ML BAG IV PRN (16:46)
--- NOTE | 2019-09-16 18:13 | NUR ---
MS/RN End note Patient remains in stable condition, all questions and concerns addressed. Patient educated about renal diets, including what foods she can and cannot eat. Will request for straight edger to speak with patient. Will endorse to night auditor.
[2019-09-16 20:00] VITALS: BP 156/106
--- NOTE | 2019-09-16 20:34 | NUR ---
MS RN OPENING NOTES PATIENT RECEIVED RESTING IN BED A/O X 3, ABLE TO MAKE NEEDS KNOWN. STABLE ON RA WITH BREATHING EVEN AND UNLABORED, NO SOB NOTED. NO SIGNS OF ACUTE DISTRESS. NO CURRENT COMPLAINTS OF PAIN OR DISCOMFORT. MIDLINE LOCATED ON R FA #18 RUNNING NS @ 75ML/ HR. SAFETY PRECAUTIONS IN PLACE WITH BED IN LOWEST POSITION, LOCKED, BREAKS ON, AND CALL LIGHT WITHIN REACH. WILL CONTINUE TO MONITOR.
[2019-09-16] MEDS: ATORVASTATIN 40 MG TABLET PO SCH (21:06)
[2019-09-16] MEDS: OLANZAPINE 2.5 MG TABLET PO SCH (21:06)
[2019-09-16] MEDS: SENNOSIDES 8.6 MG TABLET PO SCH (21:07)
[2019-09-16 22:07] VITALS: BP 144/88
--- NOTE | 2019-09-17 06:34 | NUR ---
MS RN CLOSING NOTES PATIENT CURRENTLY RESTING IN BED, A/O X3. PATIENT STABLE ON RA WITH BREATHING EVEN AND UNLABORED, NO SOB NOTED. NO SIGNS OF ACUTE DISTRESS NOTED. NO CURRENT COMPLAINTS OF PAIN OR DISCOMFORT. MIDLINE LOCATED ON R FA #18. PATIENT WAS KEPT CLEAN AND DRY THROUGHOUT THE NIGHT, ALL NEEDS ATTENDED TO. SAFETY PRECAUTIONS IN PLACE WITH BED IN LOWEST POSITION, BREAKS ON, SIDE RAILS UP X2, AND CALL LIGHT WITHIN REACH. WILL ENDORSE TO ONCOMING SHIFT ABOUT KEO.
--- NOTE | 2019-09-17 07:30 | NUR ---
MS/RN Patient received Patient received from restaurant shift supervisor. A/O X3, vital signs stable, denies any pain or discomfort at this time. IV fluids infusing at 75ml/hr via midline to right upper arm, line shows no signs of any infiltration. Call light within reach, will continue to monitor and ensure safety.
[2019-09-17 08:00] VITALS: BP_SYST 149; BP_DIAS 72; BP_DIAS 82
[2019-09-17 08:06] LABS: BASOPHILS # (AUTO) 0.1 /CMM (0.0-0.2); BASOPHILS % (AUTO) 1.1 % (0.0-2.0); EOSINOPHILS % (AUTO) 2.2 % (0.0-6.0); HEMATOCRIT 30 % (33-45); HEMOGLOBIN 9.7 g/dL (11.5-14.8); LYMPHOCYTES # (AUTO) 2.1 /CMM (0.8-4.8); LYMPHOCYTES % (AUTO) 26.1 % (20.0-44.0); MEAN CORPUSCULAR HGB CONC 32 g/dl (31.0-36.0); MEAN CORPUSCULAR VOLUME 87 fL (82-100); MONOCYTES # (AUTO) 1.2 /CMM (0.1-1.30); MONOCYTES % (AUTO) 14.5 % (2.0-12.0); NEUTROPHILS # (AUTO) 4.5 /CMM (1.8-8.9); NEUTROPHILS % (AUTO) 56.1 % (43.0-81.0); PLATELET COUNT (AUTO) 153 /CMM (150-450); RED BLOOD CELL COUNT(AUTO) 3.45 MIL/uL (4.0-5.2)
[2019-09-17] MEDS: GABAPENTIN 100 MG CAPSULE PO SCH ×3 (08:06→16:57)
[2019-09-17] MEDS: OXYBUTYNIN CHLORIDE 5 MG TABLET PO SCH ×3 (08:06→16:57)
[2019-09-17] MEDS: diphenhydrAMINE HCL 25 MG CAPSULE PO SCH ×2 (08:06→16:57)
[2019-09-17 08:24] LABS: CALCIUM, SERUM 8.3 mg/dL (8.5-10.1); CREATININE 4.1 mg/dL (0.6-1.3); MAGNESIUM 1.8 mg/dL (1.8-2.4); PHOSPHORUS 4.9 mg/dL (2.5-4.9); POTASSIUM 4.8 mmol/L (3.5-5.1)
--- NOTE | 2019-09-17 09:16 | NUR ---
MS/RN Medications Morning medications administered as ordered.
--- NOTE | 2019-09-17 10:44 | NUR ---
MS/RN S/B Dr Mayorga Seen by Dr Mayorga - CT needle guided renal biopsy ordered. Consent form signed, patient to be NPO from midnight, procedure scheduled for tomorrow.
[2019-09-17 16:00] VITALS: BP 162/97
--- NOTE | 2019-09-17 16:00 | NUR ---
MS/RN S/B Dr Almaraz Seen by Dr Almaraz - hydralazine 10mg every eight hours ordered, first dose scheduled for 2099.
[2019-09-17] MEDS: IV NS 0.9% 1,000 ML BAG IV PRN (16:58)
--- NOTE | 2019-09-17 18:35 | NUR ---
MS/RN End note Patient remains in stable condition, all needs attended, aware that she is to be NPO from midnight.
--- NOTE | 2019-09-17 19:56 | NUR ---
MS RN OPENING NOTES PATIENT RECEIVED RESTING IN BED A/O X 3. STABLE ON RA WITH BREATHING EVEN AND UNLABORED, NO SOB NOTED. NO SIGNS OF ACUTE DISTRESS. NO CURRENT COMPLAINTS OF PAIN OR DISCOMFORT. MIDLINE LOCATED ON R FA #18 PATENT AND INTACT. SAFETY PRECAUTIONS IN PLACE WITH BED IN LOWEST POSITION, BREAKS ON, SIDE RAILS UP X2, AND CALL LIGHT WITHIN REACH. WILL CONTINUE TO MONITOR.
[2019-09-17 20:00] VITALS: BP 141/86
[2019-09-17] MEDS: OLANZAPINE 2.5 MG TABLET PO SCH (21:13)
[2019-09-17] MEDS: ATORVASTATIN 40 MG TABLET PO SCH (21:13)
[2019-09-17] MEDS: SENNOSIDES 8.6 MG TABLET PO SCH (21:13)
[2019-09-17] MEDS: hydrALAZINE HCL 10 MG TABLET PO SCH (21:14)
[2019-09-17] MEDS: ISOSORBIDE DINITRATE (10MG) 10 MG TABLET PO SCH (21:14)
[2019-09-18] VITALS (10 sets, daily range): BP systolic 120–192; BP diastolic 83–115
[2019-09-18] MEDS: hydrALAZINE HCL 10 MG TABLET PO SCH ×3 (05:56→21:46)
[2019-09-18] MEDS: ISOSORBIDE DINITRATE (10MG) 10 MG TABLET PO SCH ×3 (05:56→21:47)
[2019-09-18 06:43] LABS: BASOPHILS % (AUTO) 0.7 % (0.0-2.0); EOSINOPHILS % (AUTO) 2.1 % (0.0-6.0); HEMATOCRIT 26 % (33-45); HEMOGLOBIN 8.2 g/dL (11.5-14.8); LYMPHOCYTES # (AUTO) 1.8 /CMM (0.8-4.8); LYMPHOCYTES % (AUTO) 25.8 % (20.0-44.0); MEAN CORPUSCULAR HGB CONC 32 g/dl (31.0-36.0); MEAN CORPUSCULAR VOLUME 88 fL (82-100); MONOCYTES # (AUTO) 1.2 /CMM (0.1-1.30); MONOCYTES % (AUTO) 16.3 % (2.0-12.0); NEUTROPHILS # (AUTO) 3.9 /CMM (1.8-8.9); NEUTROPHILS % (AUTO) 55.1 % (43.0-81.0); PLATELET COUNT (AUTO) 126 /CMM (150-450); RED BLOOD CELL COUNT(AUTO) 2.92 MIL/uL (4.0-5.2); WHITE BLOOD COUNT (AUTO) 7.1 K/uL (4.3-11.0)
--- NOTE | 2019-09-18 06:53 | NUR ---
MS RN CLOSING NOTES PATIENT CURRENTLY RESTING IN BED A/O X 3. STABLE ON RA WITH BREATHING EVEN AND UNLABORED, NO SOB NOTED. NO SIGNS OF ACUTE DISTRESS. NO CURRENT COMPLAINTS OF PAIN OR DISCOMFORT. MIDLINE LOCATED ON R FA #18 PATENT AND INTACT. PATIENT WAS KEPT NPO THROUGHOUT THE NIGHT. SAFETY PRECAUTIONS IN PLACE WITH BED IN LOWEST POSITION, BREAKS ON, SIDE RAILS UP X2, AND CALL LIGHT WITHIN REACH. ALL NEEDS ATTENDED TO. PATIENT KEPT CLEAN AND DRY. WILL ENDORSE TO ONCOMING SHIFT ABOUT KEO.
[2019-09-18 06:56] LABS: CALCIUM, SERUM 7.3 mg/dL (8.5-10.1); CREATININE 3.8 mg/dL (0.6-1.3); MAGNESIUM 1.6 mg/dL (1.8-2.4); PHOSPHORUS 4.9 mg/dL (2.5-4.9); POTASSIUM 4.4 mmol/L (3.5-5.1)
[2019-09-18 07:21] LABS: BILIRUBIN,TOTAL 0.1 mg/dL (0.2-1.0); TOTAL PROTEIN, SERUM 4.6 g/dL (6.4-8.2)
[2019-09-18 07:34] LABS: ALBUMIN 1.1 g/dL (3.4-5.0)
--- NOTE | 2019-09-18 08:00 | NUR ---
m/s yarn dry room worker: md visit seen and examined by dr. perry . md made aware re: albumin level=1.1 with no new order. pt remains npo, pt for ct guided renal biopsy. will continue to monitor.
[2019-09-18] MEDS: GABAPENTIN 100 MG CAPSULE PO SCH ×3 (09:46→17:11)
[2019-09-18] MEDS: diphenhydrAMINE HCL 25 MG CAPSULE PO SCH ×2 (09:46→17:11)
[2019-09-18] MEDS: OXYBUTYNIN CHLORIDE 5 MG TABLET PO SCH ×3 (09:46→17:11)
--- NOTE | 2019-09-18 13:12 | NUR ---
m/s district branch manager: notes pt remains npo, held 1300 meds due to procedure getting close; pt for ct guided needle renal biopsy with moderate sedation. pt resting comfortable in bed. for belt picker at 1330 per radial saw operator (rubio). will monitor.
[2019-09-18] MEDS ORDERED: NALOXONE PREFILLED SYRINGE 2 MG/2 ML SYRINGE IV ONE (14:30)
[2019-09-18] MEDS ORDERED: MIDAZOLAM HCL 5MG/ML VIAL 25 MG/5 ML VIAL IV ONE (14:30)
[2019-09-18] MEDS ORDERED: FENTANYL PF 250MCG/5ML AMPUL IV ONE (14:30)
--- NOTE | 2019-09-18 14:30 | NUR ---
m/s property assistant: notes taken down for ct guided biopsy via w/c accompanied by indian trader.
[2019-09-18] MEDS ORDERED: IV NS 0.9% 500 ML IV ONE (14:48)
--- NOTE | 2019-09-18 15:00 | NUR ---
ICU/RN/CT PT IS FROM [facility] ROOM.TRANSFERRED FOR CT GUIDED RENAL BIOPSY.PT IS AWAKE ,ALERT,ORIENTED.PLACED ON MONITOR SR-SB 56-67 BPM.BP 180/110.SAT O2-100%.RR-22. PT HAS HX OF HYPERTENSION.
--- NOTE | 2019-09-18 15:30 | NUR ---
ICU/RN/CT 0.5 MG VERSED IV GIVEN ORDERED.CONTINUE MONITORING.SEE V/S ON MODERATE SEDATION RECORD.
--- NOTE | 2019-09-18 15:55 | NUR ---
ICU/RN/CT. BIOPSY PROCEDURE IS OVER.PT IS AWAKE,ALERT.PT TOLERATED WELL.V/S STABLE.SEE MODERATE SEDATION RECORD.
--- NOTE | 2019-09-18 16:04 | NUR ---
ICU/RN/CT PT TRANSFERRED BACK TO HER ROOM IN STABLE CONDITION.NO S/S OF BLEEDING NOTED.NO PAIN REPORTED AT THIS TIME.
--- NOTE | 2019-09-18 16:07 | NUR ---
m/s monitoring and evaluation advisor: notes pt back from ct guided via w/c. pt safely transferred back to bed. early dinner ordered. instructed to call for assistance.
--- NOTE | 2019-09-18 17:00 | NUR ---
m/s sugar coating hand: nephro f/u seen and examined by dr. ivory at this time and teaching provided by dr. barajas. expect urine to have blood and nurse to monitor and document, and instructed pt strictly bedrest for 4 hours. pt verbalized understanding. instructed to call for assistance. will monitor.
--- NOTE | 2019-09-18 18:40 | NUR ---
m/s aoc director combat operations officer: notes resting comfortable in bed. no distress noted. instructed to call for assistance. will monitor.
--- NOTE | 2019-09-18 19:10 | NUR ---
m/s salesperson sheet music: notes bedside report given to renard (rn) for continuity of care.
--- NOTE | 2019-09-18 19:40 | NUR ---
MS RN NOTES RECEIVED JUST GOT OUT FROM THE RESTROOM,AMBULATE WITH WALKER.FALL RISK,ENCOURAGED TO USED CALL LIGHT FOR ASSISTANCE ALL THE TIME.WITH RIGHT UPPER ARM MIDLINE FOR MEDS.S/P CT GUIDED KIDNEY NEEDLE BIOPSY.MONITOR URINE FOR BLEEDING.CALL LIGHT IN REACH,NEEDS ANTICIPATED.
--- NOTE | 2019-09-18 20:00 | NUR ---
MS RN NOTES BLOOD PRESSURE 168/103,ASYMPTOMATIC,DENIES HEADACHE,NO CHEST PAIN.MEDICATED WITH APRESOLINE 10MG ANS ISORDIL 10MG PO ORDERED FOR 2100 DOSE.
[2019-09-18] MEDS: SENNOSIDES 8.6 MG TABLET PO SCH (21:45)
[2019-09-18] MEDS: OLANZAPINE 2.5 MG TABLET PO SCH (21:45)
[2019-09-18] MEDS: ATORVASTATIN 40 MG TABLET PO SCH (21:45)
--- NOTE | 2019-09-18 22:30 | NUR ---
MS RN NOTES BLOOD PRESSURE RE CHECK 129/92,HEART RATE 88 AFTER GIVEN BLOOD PRESSURE MEDS,WILL CONTINUE TO MONITOR STATUS.
--- NOTE | 2019-09-19 03:24 | NUR ---
MS RN NOTES AWAKE,WATCHING TV PROGRAM
[2019-09-19 05:00] VITALS: BP 170/77
--- NOTE | 2019-09-19 05:00 | NUR ---
MS RN NOTES BLOOD PRESSURE OF 170/77 PULSE 59 TAKEN ON LEFT CALF PER PATIENT REQUEST.DENIES CHEST PAIN.
--- NOTE | 2019-09-19 05:00 | NUR ---
MS RN NOTES DUE HYDRALAZINE 10MG AND ISORDIL 10MG PO GIVEN SCHEDULED
[2019-09-19] MEDS: ISOSORBIDE DINITRATE (10MG) 10 MG TABLET PO SCH ×2 (05:08→13:00)
[2019-09-19] MEDS: hydrALAZINE HCL 10 MG TABLET PO SCH ×2 (05:08→13:00)
[2019-09-19] MEDS: CLONIDINE HCL 0.1 MG TABLET PO PRN (05:11)
--- NOTE | 2019-09-19 05:11 | NUR ---
MS RN NOTES CATAPRES 0.1MG PO GIVEN ORDERED FOR SBP ABOVE 160
--- NOTE | 2019-09-19 06:54 | NUR ---
MS RN NOTES ON BED,SLEPT WITH INTERVALS,WALKS AROUND WHEN AWAKE WITH WALKER,NO FALL,NO INJURY,WITH EPISODE OF ELEVATED BLOOD PRESSURE,MANAGE WITH HYDRALAZINE,ISORDIL AND CATAPRES ORDERED.DENIES CHEST PAIN.IN NO ACUTE DISTRESS.WILL ENDORSE TO DAY NURSE FOR KEO.
[2019-09-19 07:06] LABS: COMPLEMENT C3, SERUM 93 mg/dL (82-167); COMPLEMENT C4, SERUM 31 mg/dL (14-44)
[2019-09-19 08:00] VITALS: BP 137/65
--- NOTE | 2019-09-19 08:00 | NUR ---
MS RN NOTES RECEIVED JUST GOT OUT FROM THE RESTROOM,AMBULATE WITH WALKER.FALL RISK,ENCOURAGED TO USED CALL LIGHT FOR ASSISTANCE ALL THE TIME.DENIES PAIN OR DISTRESS.WITH RIGHT UPPER ARM MIDLINE FOR MEDS.MONITOR URINE FOR BLEEDING.CALL LIGHT IN REACH,NEEDS ANTICIPATED.
[2019-09-19 08:07] LABS: PTH, INTACT 356 pg/mL (15-65)
[2019-09-19] MEDS: OXYBUTYNIN CHLORIDE 5 MG TABLET PO SCH ×3 (10:27→17:25)
[2019-09-19] MEDS: diphenhydrAMINE HCL 25 MG CAPSULE PO SCH ×2 (10:27→17:25)
[2019-09-19] MEDS: GABAPENTIN 100 MG CAPSULE PO SCH ×3 (10:27→17:25)
[2019-09-19 11:08] LABS: *SPE A/G RATIO 0.6 (0.7-1.7); *SPE ALBUMIN 1.6 g/dL (2.9-4.4); *SPE ALPHA-1-GLOBULIN 0.3 g/dL (0.0-0.4); *SPE ALPHA-2-GLOBULIN 1.1 g/dL (0.4-1.0); *SPE BETA GLOBULIN 0.9 g/dL (0.7-1.3); *SPE GLOBULIN, TOTAL 2.8 g/dL (2.2-3.9); *SPE M-SPIKE Not Observed g/dL (Not Observed); *SPEGAMMA GLOBULIN 0.5 g/dL (0.4-1.8)
--- NOTE | 2019-09-19 11:55 | NUR ---
WOUND CARE CONSULT: PT NOTED TO BE INDEPENDENT WITH BED MOBILITY AND CONTINENT WITH DRY SKIN AND SCARS TO LOWER LEGS, PRESENT ON ADMISSION. RECOMMENDATIONS MADE FOR SKIN PROTECTION. DISCUSSED WITH NURSING STAFF. WILL SEE PRN. KIDD IN AGREEMENT WITH PLAN OF CARE.
[2019-09-19 12:56] LABS: BASOPHILS % (AUTO) 0.7 % (0.0-2.0); EOSINOPHILS % (AUTO) 2.7 % (0.0-6.0); HEMATOCRIT 25 % (33-45); LYMPHOCYTES # (AUTO) 1.4 /CMM (0.8-4.8); LYMPHOCYTES % (AUTO) 26.5 % (20.0-44.0); MEAN CORPUSCULAR HGB CONC 32 g/dl (31.0-36.0); MEAN CORPUSCULAR VOLUME 87 fL (82-100); MONOCYTES # (AUTO) 0.7 /CMM (0.1-1.30); NEUTROPHILS # (AUTO) 2.9 /CMM (1.8-8.9); NEUTROPHILS % (AUTO) 57.1 % (43.0-81.0); PLATELET COUNT (AUTO) 145 /CMM (150-450); RED BLOOD CELL COUNT(AUTO) 2.85 MIL/uL (4.0-5.2); WHITE BLOOD COUNT (AUTO) 5.1 K/uL (4.3-11.0)
[2019-09-19 14:57] LABS: BILIRUBIN,TOTAL 0.2 mg/dL (0.2-1.0); CALCIUM, SERUM 8.1 mg/dL (8.5-10.1); CREATININE 4.2 mg/dL (0.6-1.3); MAGNESIUM 1.8 mg/dL (1.8-2.4); PHOSPHORUS 5.5 mg/dL (2.5-4.9); POTASSIUM 4.9 mmol/L (3.5-5.1); TOTAL PROTEIN, SERUM 4.7 g/dL (6.4-8.2)
[2019-09-19 15:09] LABS: ALBUMIN 1.2 g/dL (3.4-5.0)
[2019-09-19 16:00] VITALS: BP 139/78
[2019-09-19 17:24] VITALS: BP 144/73
[2019-09-19] MEDS: hydrALAZINE HCL IV 20 MG VIAL IV PRN (17:24)
--- NOTE | 2019-09-19 17:50 | NUR ---
DISCHARGED PT TO [facility] VIA AMBULANCE WITH STABLE V/S.PT DENYING ANY PAIN OR DISTRESS.REPORT GAVE TO DEJAN OF [facility]. CHICHO MIDLINE REMOVED WITH NO BLEEDING NOTED.PT TOLERATED WELL.
[2019-09-21 12:06] LABS: *ANCANTIMYELOPEROXIDASE (MPO) <9.0 U/mL (0.0-9.0); *ANCANTIPROTEINASE 3 (PR-3) AB <3.5 U/mL (0.0-3.5)
[2019-09-21 13:08] LABS: *ANCA ATYPICAL p-ANCA <1:20 titer (Neg:<1:20); *ANCA CYTOPLASMIC (C-ANCA) <1:20 titer (Neg:<1:20); *ANCA PERINUCLEAR (P-ANCA) <1:20 titer (Neg:<1:20)
== END 2019-09-19 18:00 | DRG 291 ==
LOC: ER 15:16 → TELE 20:16 → MED 09-14 11:21
PROVIDERS: ADMIT Internal Medicine Hematology & Oncology; ATTEND Internal Medicine
PROC: 05H933Z Insertion of Infusion Device into Right Brachial Vein, Percutaneous Approach (ICD-10-PCS; principal; 2019-09-16)
DX: I13.0 Hypertensive heart and chronic kidney disease with heart failure and stage 1 through stage 4 chronic kidney disease, or unspecified chronic kidney disease (principal); N17.0 Acute kidney failure with tubular necrosis; N25.81 Secondary hyperparathyroidism of renal origin; N18.3 Chronic kidney disease, stage 3 (moderate); E78.5 Hyperlipidemia, unspecified; E86.0 Dehydration; E87.5 Hyperkalemia; F20.9 Schizophrenia, unspecified; K74.60 Unspecified cirrhosis of liver; B18.2 Chronic viral hepatitis C; F32.9 Major depressive disorder, single episode, unspecified; J44.9 Chronic obstructive pulmonary disease, unspecified; D64.9 Anemia, unspecified; F17.200 Nicotine dependence, unspecified, uncomplicated; G89.29 Other chronic pain; M19.90 Unspecified osteoarthritis, unspecified site; Z98.890 Other specified postprocedural states; Z79.82 Long term (current) use of aspirin; Z79.899 Other long term (current) drug therapy
CPT/HCPCS: 36410; 36415; 71045-TC; 76770-TC; 76942-TC; 77012-TC; 80048-TC; 80053-TC; 80061-TC; 81000-TC; 82550-TC; 82962-TC; 83520; 83735-TC; 83970; 84100-TC; 84155; 84165; 84443-TC; 85025-TC; 85610-TC; 85730-TC; 86256; 87081-TC; 87086-TC; 93307-TC; 97112-TC; 97530-TC; G0378; J0360; J1815; J2250; J2310; J3010; J7030; J7040; Q0163

== ENCOUNTER 2019-11-22 11:19 | Inpatient (IN) | payer MEDICARE, OTHER ==
[~2019-11-22] VITALS: Ht 162.6 cm; Wt 52.2 kg
[~2019-11-22 11:19] MED LIST changes: -ASPI-1169 PO; +ATOR40TA PO; -CARV3.122 PO; -DEXT15DR6 EACHEYE; +DIPH25CA46 PO; -DOCU100C36 PO; -FERR325T23 PO; -FLUO10TA PO; -FURO20TA4 PO; +KETO5DRO39 LEFTEYE; -LISI-607 PO; +OFLO5DRO6 LEFTEYE; +OLAN2.5T3 PO; +PRED5DRO17 LEFTEYE; +SENN-168 PO; +TRAM50TA2 PO
--- NOTE | 2019-11-22 11:40 | NUR ---
BIB PA [facility] FOR ABDOMINAL PAIN AND DISTENSION SINCE LAST NIGHT. PATIENT A/OX4, BREATHING EVEN AND UNLABORED, NO SOB NOTED. NO COUGH NOTED. NEEDS ATTENDED. KEPT COMFORTABLE.
[2019-11-22] MEDS ORDERED: FERR325T23 PO (11:45)
[2019-11-22] MEDS ORDERED: AMLO5TAB9 PO (11:45)
[2019-11-22] MEDS ORDERED: DARB25VI SQ (11:45)
[2019-11-22] MEDS ORDERED: CALA177L16 TP (11:45)
[2019-11-22] MEDS ORDERED: NALO4SPR NS (11:45)
[2019-11-22] MEDS ORDERED: LACT10SO PO (11:45)
[2019-11-22] MEDS ORDERED: ISOS10TA2 PO (11:45)
[2019-11-22] MEDS ORDERED: BUPR1TAB45 SL (11:45)
[2019-11-22] MEDS ORDERED: OLAN5TAB6 PO (11:45)
[2019-11-22] MEDS ORDERED: CHOL500052 PO (11:45)
[2019-11-22] MEDS ORDERED: SEVE800T8 PO (11:45)
[2019-11-22] MEDS ORDERED: POLY17PO4 PO (11:45)
[2019-11-22] MEDS ORDERED: HYDR100T27 PO (11:45)
[2019-11-22] MEDS ORDERED: KETOROLAC TROMETHAMINE 15 MG/ML VIAL ONE (11:58)
[2019-11-22] MEDS ORDERED: ONDANSETRON HCL/PF 4 MG/2 ML VIAL ONE (11:58)
[2019-11-22] MEDS ORDERED: IV NS 0.9% 1,000 ML BAG IV ONE (12:00)
[2019-11-22] MEDS ORDERED: KETOROLAC TROMETHAMINE INJ 30 MG/ML VIAL IV ONE (12:00)
[2019-11-22] MEDS ORDERED: ONDANSETRON HCL/PF 4 MG/2 ML VIAL IVP ONE (12:00)
[2019-11-22 12:10] LABS: BASOPHILS % (AUTO) 0.5 % (0.0-2.0); EOSINOPHILS % (AUTO) 0.4 % (0.0-6.0); HEMATOCRIT 33 % (33-45); HEMOGLOBIN 10.2 g/dL (11.5-14.8); LYMPHOCYTES # (AUTO) 1.1 /CMM (0.8-4.8); MEAN CORPUSCULAR HGB CONC 31 g/dl (31.0-36.0); MEAN CORPUSCULAR VOLUME 93 fL (82-100); MONOCYTES # (AUTO) 0.5 /CMM (0.1-1.30); MONOCYTES % (AUTO) 8.8 % (2.0-12.0); NEUTROPHILS % (AUTO) 71.3 % (43.0-81.0); PLATELET COUNT (AUTO) 178 /CMM (150-450); RED BLOOD CELL COUNT(AUTO) 3.52 MIL/uL (4.0-5.2); WHITE BLOOD COUNT (AUTO) 5.6 K/uL (4.3-11.0)
[2019-11-22 12:30] LABS: CALCIUM, SERUM 8.5 mg/dL (8.5-10.1); CREATININE 2.7 mg/dL (0.6-1.3); POTASSIUM 5.6 mmol/L (3.5-5.1)
[2019-11-22 12:36] LABS: ALBUMIN 2.3 g/dL (3.4-5.0); BILIRUBIN,DIRECT 0.1 mg/dL (0.0-0.2); BILIRUBIN,TOTAL 0.3 mg/dL (0.2-1.0)
[2019-11-22 13:15] LABS: APPEARANCE,URINE Clear (CLEAR); BILIRUBIN,URINE Negative (NEGATIVE); BLOOD, URINE Negative Ery/uL (NEGATIVE); COLOR,URINE Yellow (YELLOW); KETONES,URINE Negative (NEGATIVE); LEUKOCYTE ESTERASE ,URINE Negative (NEGATIVE); NITRITE, URINE Negative (NEGATIVE); PH,URINE 5.5 (5.0-8.0); PROTEIN,URINE >=300 mg/dl (NEGATIVE); UGLUCOSE Negative (NEGATIVE); UROBILINOGEN,URINE 0.2 EU/dL (0.2)
--- NOTE | 2019-11-22 13:52 | NUR ---
PAGED SURGERY SCIENTIFIC DIVER.
--- NOTE | 2019-11-22 14:04 | NUR ---
PAGED [facility].
--- NOTE | 2019-11-22 14:20 | NUR ---
CALLED NURSING SUP FOR M/S BED.
--- NOTE | 2019-11-22 14:36 | NUR ---
NURSING SUP GAVE M/S BED 102.
--- NOTE | 2019-11-22 15:06 | NUR ---
CALLED [facility]. CONFIRMATION NUMBER [id number].
--- NOTE | 2019-11-22 15:13 | NUR ---
REPORT GIVEN TO KAM HSIEH FOR KEO.
[2019-11-22 16:00] VITALS: BP 125/61
--- NOTE | 2019-11-22 16:00 | NUR ---
RN NOTE RECEIVED PATIENT FROM ER. IN STABLE CONDITION, COMPLAINING OF ABDOMINAL PAIN. PATIENT ON ROOM AIR SATURATING WELL, NO SIGNS AND SYMPTOMS OF RESPIRATORY DISTRESS NOTED. IV ON RIGHT UPPER ARM INTACT AND FLUSHED WELL. SKIN IS INTACT. PICTURES TAKEN AND PLACED IN THE CHART. VITAL SIGNS STABLE. WAITING ON ORDERS FROM MD. CALL LIGHT WITHIN REACH, PATIENT SAFETY MAINTAINED, WILL CONTINUE TO MONITOR CLOSELY.
--- NOTE | 2019-11-22 16:09 | NUR ---
PATIENT TRANSFERRED TO ROOM 102, IN NO DISTRESS.
--- NOTE | 2019-11-22 17:30 | NUR ---
RN CLOSING NOTES RECEIVED TELEPHONE ORDERS FROM DR LOWERY. ORDERS CONFIRMED VIA READ-BACK. ORDER ENTERED INTO THE COMPUTER. PATIENT IS IN STABLE CONDITION, NO ACUTE CHANGES TOWARDS MY SHIFT, ISOLATION IS BEING OBSERVED, SAFETY MAINTAINED, CALL LIGHT WITHIN REACH, ENDORSED TO LAUNDRY EQUIPMENT OPERATOR NURSE TO CONTINUE CARE.
[2019-11-22] MEDS ORDERED: HYDROMORPHONE INJ 0.5 MG/0.5 ML SYRINGE IV PRN (18:30)
[2019-11-22] MEDS ORDERED: IV NS 0.9% 1,000 ML BAG IV PRN ×2 (18:30→19:30)
[2019-11-22] MEDS ORDERED: ONDANSETRON HCL/PF 4 MG/2 ML VIAL IV PRN (18:30)
[2019-11-22] MEDS ORDERED: IV NS 0.9% 1,000 ML IV PRN (19:30)
--- NOTE | 2019-11-22 19:30 | NUR ---
SPEAKER MOUNTER OPENING NOTE RECEIVED PATIENT ON DROPLET PRECAUTIONS FOR R/O COVID-19. PATINET IN BED. A/OX3. TOLERATING ROOM AIR. RESPIRATIONS ARE EVEN AND UNLABORED. NO S/S SOB NOTED. C/O PAIN, INFORMED HER I WILL GIVE PAIN MEDICATION ONCE RECEIVED REPORT FOR ALL PATIENTS. EXTERNAL TELE MONITOR READS SR HR 70. IN NO APPARENT DISTRESS. IV ACCESS IN CHICHO PATENT AND SALINE LOCKED. INFORMED PATIENT OF NPO STATUS. BED IS LOW AND LOCKED, HOB ELEVATED IN SEMI FOWLERS, SIDE RIALS UP X2, BED ALARM ON. CALL LIGHT WITHIN REACH. WILL CONTINUE TO MONITOR.
[2019-11-22 20:00] VITALS: BP 124/62
[2019-11-22] MEDS: HYDROMORPHONE 1 MG/1 ML DISP.SYRIN IV PRN (21:00)
--- NOTE | 2019-11-22 21:02 | NUR ---
LAUNCH MANAGER NOTE ADMINISTERED PRN ZOFRAN 4MG TO PREVENT AFFECTS OF N/V INDUCED BY MORPHINE. ALSO ADMINISTERED MORPHINE 2MG FOR PAIN 9/10 IN ABDOMEN. WILL CONTINUE TO MONITOR.
--- NOTE | 2019-11-22 21:03 | NUR ---
MS RN NOTE PATIENT REFUSED NGT INSERTION. EXPLAINED RISK AND BENEFITS. PATIENT CONTINUES TO REFUSE. WILL OFFER AGAIN BEFORE SHIFT CHANGE. WILL CONTINUE TO MONITOR.
--- NOTE | 2019-11-22 21:11 | NUR ---
MS RN NOTE CALLED LAB TO NOTIFY THERE IS A SPECIMEN FOR MANAGER DIVERSITY, RAPID INFLUENZA SWAB. WILL CONTINUE TO MONITOR.
[2019-11-23] VITALS: BP_SYST 124; BP_SYST 133; BP_DIAS 62; BP_DIAS 75
[2019-11-23 04:00] VITALS: BP 136/85
--- NOTE | 2019-11-23 06:02 | NUR ---
FUSING MACHINE FEEDER CLOSING NOTE PATIENT REMAINS ON DROPLET PRECAUTIONS FOR R/O COVID-19. PATIENT IN BED. A/OX3. TOLERATING ROOM AIR. RESPIRATIONS ARE EVEN AND UNLABORED. NO SOB NOTED. MANAGED PAIN WITH DILAUDID. EXTERNAL TELE MONITOR READS SR HR 70. NO DISTRESS NOTED. IV ACCESS MAINTAINED IN CHICHO PATENT AND SALINE LOCKED. MAINTAINED NPO STATUS. BED REMAINS LOW AND LOCKED, HOB ELEVATED IN SEMI FOWLERS, SIDE RIALS UP X2, BED ALARM ON. CALL LIGHT WITHIN REACH. WILL ENDORSE TO NEXT SHIFT.
--- NOTE | 2019-11-23 07:30 | NUR ---
AYALA RN OPENING NOTE Received pt asleep in bed. Easily awaken. A/o x3. No signs of distress. Peripheral IV in place on CHICHO. Flushed and patent. No co pain or discomfort. Pt is on NPO due to small bowel obstruction. Pt expressed her want for food. I informed will have to follow up with MD regarding diet. Safety measures reinforced. Call light within reach. Will cont to monitor.
[2019-11-23 07:52] LABS: BILIRUBIN,TOTAL 0.3 mg/dL (0.2-1.0); CALCIUM, SERUM 8.2 mg/dL (8.5-10.1); CREATININE 2.7 mg/dL (0.6-1.3); POTASSIUM 5.3 mmol/L (3.5-5.1); TOTAL PROTEIN, SERUM 5.5 g/dL (6.4-8.2)
[2019-11-23 08:00] VITALS: BP_SYST 138; BP_SYST 153; BP_DIAS 85; BP_DIAS 86
[2019-11-23 08:39] LABS: BASOPHILS % (AUTO) 0.1 % (0.0-2.0); HEMATOCRIT 34 % (33-45); HEMOGLOBIN 10.5 g/dL (11.5-14.8); LYMPHOCYTES # (AUTO) 1.3 /CMM (0.8-4.8); LYMPHOCYTES % (AUTO) 24.3 % (20.0-44.0); MEAN CORPUSCULAR HGB CONC 31 g/dl (31.0-36.0); MEAN CORPUSCULAR VOLUME 93 fL (82-100); MONOCYTES # (AUTO) 0.6 /CMM (0.1-1.30); MONOCYTES % (AUTO) 11.7 % (2.0-12.0); NEUTROPHILS # (AUTO) 3.4 /CMM (1.8-8.9); NEUTROPHILS % (AUTO) 62.9 % (43.0-81.0); PLATELET COUNT (AUTO) 147 /CMM (150-450); WHITE BLOOD COUNT (AUTO) 5.4 K/uL (4.3-11.0)
[2019-11-23] MEDS: IV D5/0.45 NACL 1,000 ML IV PRN (09:15)
--- NOTE | 2019-11-23 09:30 | NUR ---
AYALA RN NOTE Called Dr. Almaraz to reconcile meds. cannot talk right now. Will follow up.
--- NOTE | 2019-11-23 09:35 | NUR ---
AYALA RN NOTE Check pt BS. Result is 33 mg/dl. Called MD to get an order for Glucagon 1mg IM. MD agreed. Administered Glucagon 1mg IM. Will cont to monitor.
[2019-11-23] MEDS ORDERED: GLUCAGON,HUMAN RECOMBINANT 1 MG/VIAL VIAL IM ONE (10:00)
--- NOTE | 2019-11-23 10:45 | NUR ---
AYALA RN NOTE Checked pt BS is 72mg/dl. Will cont to monitor. Pt is on d5 1/2 NS at 125ml/hr.
--- NOTE | 2019-11-23 11:47 | NUR ---
AYALA RN NOTE Called Dr. Gustafson to inform latest Chest xray and Abdominal xray results. also informed about platelet 147 and potassium level 5.3. Left a message, will follow up. Called radiology to follow up on the xray small bowel follow through. Per rep she will check with the tech what time they can come to do it. Noted.
[2019-11-23 12:00] VITALS: BP 146/58
--- NOTE | 2019-11-23 12:18 | NUR ---
AYALA RN NOTE Received call from Radiology reg Small Bowel Follow Through. Pt was complaining of the board placed on her back. Tech suggested pain medication before procedure at bedside. They will call me 30 mins before procedure so I can administer pain meds.
[2019-11-23] MEDS ORDERED: DIATR MEGLU/DIATRIZOATE SODIUM 120 ML BOTTLE (GASTROGRAPHIN) ONE (12:24)
[2019-11-23] MEDS: HYDROMORPHONE 1 MG/1 ML DISP.SYRIN IV PRN (13:21)
--- NOTE | 2019-11-23 14:30 | NUR ---
AYALA RN NOTE Spoke to Alma Rosa VASQUES of Dr. Gustafson's office. Wanted to know the results. Informed the procedure is not done yet. Told her I will call her once we get the results. Alma Rosa [phone].
[2019-11-23 16:00] VITALS: BP 148/93
--- NOTE | 2019-11-23 18:15 | NUR ---
AYALA RN NOTE Patient had 3 bowel movements brown and liquid with foul smell. Collected stool. Page Dr. Almaraz to get an order for stool eval. Will follow up.
--- NOTE | 2019-11-23 18:32 | NUR ---
AYALA RN NOTE Sent stool specimen to laboratory for C.Diff eval.
--- NOTE | 2019-11-23 18:56 | NUR ---
AYALA RN NOTE It smells like burning. Went to patient's room and found her purse in her hands. Confiscated the calender runner and reinforced safety measures.
--- NOTE | 2019-11-23 19:05 | NUR ---
DIRECTOR OF PROCUREMENT CLOSING NOTE Patient is in bed awake. No signs of distress. Patient is still NPO. D5 1/2 NS still running at 125cc/hr. Kept clean and dry. Vital signs within normal limits. All due meds given. All needs met. Reinforced safety measures. Bed on lowest and locked position. No co pain or discomfort. Still waiting for xray small bowel follow through. Endorsed to book or script editor for ajay.
--- NOTE | 2019-11-23 19:55 | NUR ---
NURSING ASSOC NOTES RECEIVED PATIENT IN BED ALERT AWAKE, BREATHING NORMAL NO SOB NOTED. RESPIRATION EVEN NON LABORED. SKIN INTACT WARM AND DRY TO TOUCH. CHICHO IV SITE INTACT PATENT D51/2 NS RUNNING @125ML/HR. PATIENT IS CURRENTLY NPO. KEPT CLEAN AND COMFORTABLE. ALL NEEDS ARE ATTENDED. ALL SAFETY MEASURES IN PLACE, SIDE RAILS UPX2. CALL LIGHT WITHIN REACH. WILL CONT TO MONITOR.
--- NOTE | 2019-11-23 20:00 | NUR ---
INTELLECTUAL PROPERTY PARALEGAL NOTE PATIENT IS REFUSING VITAL SIGNS AND IV FLUIDS. OFFER X3 RISK AND BENEFITS EXPLAINED. PATIENT STILL REFUSING.
--- NOTE | 2019-11-23 21:00 | NUR ---
YARDING SUPERVISOR NOTE PATIENT REFUSED TO PUT TELE MONITOR, OFFERED X3 R/B EXPLAINED PATIENT STRONGLY REFUSED.
[2019-11-24] VITALS: BP 150/90
--- NOTE | 2019-11-24 02:00 | NUR ---
KITCHEN STEWARDESS NOTE PATIENT AGREED TO PUT TELE MONITOR.
[2019-11-24 04:00] VITALS: BP 152/88
[2019-11-24] MEDS: IV D5/0.45 NACL 1,000 ML IV PRN (05:43)
--- NOTE | 2019-11-24 06:48 | NUR ---
MEASUREMENT PSYCHOLOGIST NOTES PATIENT RESTED WELL DURING SHIFT, BREATHING NORMAL NO SOB NOTED. RESPIRATION EVEN NON LABORED. SKIN WARM AND DRY TO TOUCH. CHICHO IV SITE INTACT PATENT FLUSHED WELL. PATIENT IS CURRENTLY NPO. KEPT CLEAN AND COMFORTABLE. ALL NEEDS ARE ATTENDED. ALL SAFETY MEASURES IN PLACE, SIDE RAILS UP. CALL LIGHT WITHIN REACH. WILL ENDORSE TO DAY SHIFT NURSE FOR KEO.
--- NOTE | 2019-11-24 07:15 | NUR ---
ALGOLOGY TEACHER NOTES PATIENT IN BED A/OX4 WITH NO SOB OR DISCOMFORT. SHE IS COMPLAINING OF BEING NPO AND SHE WANTS TO RESUME THE FEEDING PROCESS. SHE MENTIONED THAT SHE WANTS TO LEAVE THE HOSPITAL. IV SITE PATENT. ON ISOLATION TO RULE OUT COVIT-19. CALL LIGHT WITHIN REACH BED AT THE LOWEST POSITION LOCKED. WILL CONTINUE TO MONITOR.
[2019-11-24 08:00] VITALS: BP 130/72
--- NOTE | 2019-11-24 09:10 | NUR ---
MS RN NOTES SINGLE PASS SOIL STABILIZER OPERATOR SHADY WAS NOTIFIED THAT PATIENT DOES NOT WANT TO STAY AT HOSPITAL. SHE WANTS TO RESUME EATING AND MENTIONED THAT SHE DOES NOT WANT TO SIGN AMA FORM.
[2019-11-24] MEDS: HYDROMORPHONE 1 MG/1 ML DISP.SYRIN IV PRN (10:20)
--- NOTE | 2019-11-24 10:30 | NUR ---
RN NOTES REPORT GIVEN TO CAIT FOR KEO.
--- NOTE | 2019-11-24 10:47 | NUR ---
MS/RN NOTES TECH FROM RADIOLOGY ARRIVE AT THE UNIT TO TAKE PATIENT FOR CT BUT THE PATIENT IS REFUSING. EXPLAINED RISK AND BENEFITS X3. STILL REFUSED X3. PATIENT CONTINUES TO REMAIN IN STABLE CONDITION. WILL CONTINUE TO MONITOR CLOSELY.
--- NOTE | 2019-11-24 11:13 | NUR ---
MS/RN NOTES CALLED DR. SCHUSTER'S OFFICE AND SPOKE TO THE INVASIVE PHYSICIAN, ACCORDING TO HER SHE WOULD PAGE THE DOCTOR AND TO CALL THE HOSPITAL BACK. AWAITING FOR CALL BACK. PATIENT CONTINUES TO REMAIN IN STABLE CONDITION. WILL CONTINUE TO MONITOR CLOSELY.
--- NOTE | 2019-11-24 11:40 | NUR ---
MS/RN NOTES PATIENT CONTINUES TO REFUSED BLOOD DRAW WELL. EXPLAINED RISK AND BENEFITS X3. STILL REFUSED. WILL CONTINUE TO MONITOR CLOSELY.
[2019-11-24 12:00] VITALS: BP 124/76
--- NOTE | 2019-11-24 12:31 | NUR ---
MS/RN NOTES REMOVED PREVIOUS IV SITE DUE TO INFILTRATION. ATTEMPTED TO PLACE A NEW LINE BUT PATIENT CONTINUES TO REFUSE. EXPLAINED RISK AND BENEFITS X3. STILL REFUSED. PATIENT REMAINS IN STABLE CONDITION. WILL CONTINUE TO MONITOR CLOSELY.
--- NOTE | 2019-11-24 14:55 | NUR ---
MS/RN NOTES PATIENT SEEN AND EVALUATED BY DR. LOWERY AT BEDSIDE WITH ORDERS FOR NICODERM PATCH 21MG DAILY. PATIENT CONTINUES TO REMAIN IN STABLE CONDITION. WILL CONTINUE TO MONITOR CLOSELY.
--- NOTE | 2019-11-24 15:30 | NUR ---
RN NOTES RECEIVED PATIENT VIA HOSPITAL BED FROM [facility], ORIENTED TO UNIT, ROOM AND STAFF. NO SIGNS OF DISTRESS NOTED AT THIS TIME, ON RA, TOLERATING WELL, NO IV ACCESS, ASKED IF IT'S OKAY TO INSERT IV, EXPLAINED RISKS AND BENEFITS BUT PATIENT STILL REFUSED. REFUSED SKIN ASSESSMENT. PATIENT JUST WANT TO BE LEFT ALONE. AWAITING FOR GI CONSULT. WILL CONTINUE TO MONITOR.
--- NOTE | 2019-11-24 15:36 | NUR ---
MS/CAMPAIGN DEVELOPER NOTES TRANSFER OF CARE REPORT WAS GIVEN TO МАРИЯ DIAZ IN 3W. PATIENT CONTINUES TO REMAIN IN STABLE CONDITION THROUGHOUT THE SHIFT. PROVIDED COMFORT AND SAFETY. PATIENT WAS TRANSFERRED VIA BED AND PATIENT WAS PLACE IN ROOM 308-1. ALL BELONGINGS WAS BROUGHT UP WITH HER AND IN HER POSSESSION. PATIENT WAS LEFT IN STABLE CONDITION.
--- NOTE | 2019-11-24 18:35 | NUR ---
RN NOTES PATIENT IN BED A/OX4 WITH NO SOB OR DISCOMFORT NOTED THROUGHOUT THE SHIFT. NO IV ACCESS, PATIENT STILL REFUSED. SAFETY MEASURES IN PLACE, CALL LIGHT WITHIN REACH BED AT THE LOWEST POSITION LOCKED. WILL ENDORSE TO SUPERVISOR PAPER PRODUCTS NURSE FOR KEO.
--- NOTE | 2019-11-24 19:32 | NUR ---
MS RN RECEIVE PT IN BED A/O X 4 RESPIRATIONS EVEN AND UNLABORED, NO S/S OF DISTRESS, STABLE. SAFETY MEASURES AT ALL TIMES. WILL CONT TO MONITOR, Addendum: 11/24/19 at 2255 by KAYLA CÁRDENAS RN PT REFUSING IV INSERTION DESPITE EXPLAINING RISKS AND BENEFITS OFFERED 3 TIMES PT REFUSED PT VERBALIZED"I DONT WANT I.V ANYMORE PLEASE DO NOT INSERT". EDUCATED PT IMPORTANCE OF HYDRATION. PT VERBALIZED UNDERSTANDING
[2019-11-24 20:00] VITALS: BP 154/84
--- NOTE | 2019-11-24 22:51 | NUR ---
SUMANTH LOWERY OFFICE SPOKE TO ONCALL FERDINAND DORADO, END LATHE OPERATOR RELAYED PT C/O REQUESTED PO PAIN MEDICATION. RECEIVE NEW ORDERS OF MOTRIN 600 MG Q6HR PO PRN READ BACK AND VERIFIED ORDERS NOTED AND CARRIED OUT. Addendum: 11/24/19 at 2301 by KAYLA CÁRDENAS RN PER FERDINAND GILBERT SHE DOESN'T WANT TO ORDER CLASS 2 NARCOTICS AT THIS TIME PLS FF UP DR. LOWERY AT AM
--- NOTE | 2019-11-24 22:55 | NUR ---
DR LOWERY BUSINESS MANAGEMENT CONSULTANT SPOKE TO VLADIMIR STREETER NP PT REFUSING IV PERIPHERAL INSERTION
[2019-11-24] MEDS ORDERED: IBUPROFEN 600 MG TABLET PO PRN (23:00)
--- NOTE | 2019-11-24 23:00 | NUR ---
LAB INSTRUCTIONAL SUPPORT SERVICES DIRECTOR UNABLE TO GET BLOOD AT AT THIS TIME. PER LAB PT HARD STICK
--- NOTE | 2019-11-24 23:11 | NUR ---
PAGED AND RELAYED ANNUAL GIVING MANAGER DR. LOWERY OFFICE SPOKE TO FERDINAND GILBERT MOTRIN CANNOT BE ORDERED DUE PT RENAL FUNCTION PER PHARMACIST. PER VLADIMIR STREETER ORDER TYLENOL 650 MG PO Q4HR PRN READ BACK AND VERIFIED ORDERS NOTED AND CARRIED OUT
[2019-11-24] MEDS ORDERED: ACETAMINOPHEN 325 MG TABLET PO PRN (23:30)
--- NOTE | 2019-11-24 23:35 | NUR ---
UPON ADMINISTERING TYLENOL PT SPIT IT OUT AND DOESN'T WANT TYLENOL PT VERBALIZED" I DONT WANT THIS". PT CHANGED MIND AT THIS TIME. DESPITE EXPLAINING RISKS AND BENEFITS
--- NOTE | 2019-11-25 00:54 | NUR ---
PAGED DR. LOWERY SPOKE TO AYESHA CANNON PT COMPLAINED OF PAIN PER AYESHA CANNON ORDER OF TORADOL 30 MG IM Q4HR PRN READ BACK AND VERIFIED ORDERS NOTED AND CARRIED OUT
[2019-11-25] MEDS ORDERED: KETOROLAC TROMETHAMINE INJ 30 MG/ML VIAL IM PRN ×2 (01:00)
--- NOTE | 2019-11-25 01:07 | NUR ---
PAGED DR. LOWERY SPOKE TO ON-CALL DAVIS HODGE RELAYED TORADOL CONTRAINDICATED PER PHARMACIST PT RENAL FUNCTION PER FERDINAND CANNON DC TORADOL RECEIVE NEW VERBAL ORDER OF MORPHINE 2MG Q4HR PRN I.M MODERATE PAIN 4-7 AND MORPHINE 4 MG Q4 IM SEVERE PAIN 8-10 READ BACK AND VERIFIED ORDERS NOTED AND CARRIED OUT
--- NOTE | 2019-11-25 01:25 | NUR ---
BP 130/77 R 19 P 73
[2019-11-25] MEDS ORDERED: MORPHINE SULFATE INJ 2 MG/ML DISP.SYRIN IM PRN (01:30)
[2019-11-25] MEDS ORDERED: MORPHINE SULFATE INJ 4 MG/ML DISP.SYRIN IM PRN (01:30)
--- NOTE | 2019-11-25 06:24 | NUR ---
PT SLEPT WELL, MONITORED FOR PAIN, ALL NEEDS ATTENDED AND ANTICIPATED, KEPT CLEAN, DRY AND COMFORTABLE, NO C/O PAIN AT THIS TIME. SAFETY MEASURES AT ALL TIMES. WILL ENDORSE TO NEXT SHIFT
--- NOTE | 2019-11-25 06:27 | NUR ---
PT STILL REFUSING IV PERIPHERAL INSERTION DESPITE EXPLAINING RISKS AND BENEFITS
--- NOTE | 2019-11-25 06:28 | NUR ---
AM LAB CANNOT DRAW BLOOD PER AM INDEPENDENT LIVING SPECIALIST THEY WILL SEND ANOTHER STAFF PER LAB "PT HARD STICK"
--- NOTE | 2019-11-25 06:37 | NUR ---
PT REFUSING BLOOD LAB DRAW AT THIS TIME PT VERBALIZED "ITS TOO MUCH IM TIRED". PT NON COMPLIANT. DESPITE EXPLAINING RISKS AND BENEFITS.
--- NOTE | 2019-11-25 07:25 | NUR ---
MS RN OPENING NOTES RECEIVED PT IN BED, AWAKE, A/O X3-4. PT TOLERATING RA WITH NO ACUTE RESPIRATORY DISTRESS NOTED. PT DENIES ANY PAIN OR DISCOMFORT AT THIS TIME. NO IV ACCESS NOTED, PER PT PREFERS NOT TO HAVE IT. PT KEPT COMFORTABLE IN BED. PT'S BED IN LOWEST, LOCKED POSITION WITH SR X3. CALL LIGHT KEPT WITHIN REACH. WILL CONTINUE PLAN OF CARE.
[2019-11-25] MEDS ORDERED: NICOTINE PATCH (21MG) 21 MG PATCH.TD24 TD SCH (09:00)
--- NOTE | 2019-11-25 10:06 | NUR ---
MS RN NOTES PT SEEN AND EVALUATED BY DR LOWERY. PT MAY GO BACK TO PREVIOUS PLACE AND DISCHARGE TODAY AFTER PT START SOFT DIET AT LUNCH TIME. CHARGE NURSE/ BECKY MADE AWARE WELL.
--- NOTE | 2019-11-25 12:00 | NUR ---
MS RN NOTES RN VERIFIED WITH DR LOWERY, NO NEED TO WAIT FOR GI CONSULT. PT CAN GO BACK TO [facility]. NAWAF/JOÃO MADE AWARE. TRANSPORTATION ARRANGED AT 3:30PM. WILL CONTINUE TO MONITOR PT.
--- NOTE | 2019-11-25 15:25 | NUR ---
MS BASKET OPERATOR NOTES PT TO DISCHARGE BACK TO [facility]. PT A/O X4. TOLERATING RA, WITH NO ACUTE RESPIRATORY DISTRESS. PT DENIES ANY PAIN OR DISCOMFORT AT THE TIME OF DISCHARGE. PT REVIEWED AND SIGNED DISCHARGE PAPERS AND INVENTORY LIST. ALL BELONGINGS WITH THE PT. NO IV ACCESS NOTED. PT REFUSED SKIN ASSESSMENT AND TO TAKE PICTURES. PER PT SHES OKAY AND SHES EXCITED TO GO BACK. RN EXPLAINED RISKS AND BENEFITS, PT INSISTED TO REFUSE. ALL NEEDS AND CARE ATTENDED. HEALTH COMMISSIONER ARRIVED AND PET CARE ATTENDANT PT, PT TO TRASPORT VIA GURNEY IN AN AMBULANCE. VITALS RECHECKED AND STABLE. PT LEFT THE UNIT AT 1525. HOSPITALIST/MD/SEBASTIÁN AND CHARGE NURSE/YANELIS AWARE OF DISCHARGE.
== END 2019-11-25 15:30 | DRG 389 ==
LOC: ER 11:23 → MEDSG1 14:41 → TELE1 15:20 → MEDSG1 17:50 → TELE1 17:55 → MEDSG1 11-24 08:09 → MED 11-24 15:13
PROVIDERS: ADMIT Internal Medicine; ATTEND Internal Medicine
DX: K56.609 Unspecified intestinal obstruction, unspecified as to partial versus complete obstruction (principal); N18.4 Chronic kidney disease, stage 4 (severe); I50.20 Unspecified systolic (congestive) heart failure; I13.0 Hypertensive heart and chronic kidney disease with heart failure and stage 1 through stage 4 chronic kidney disease, or unspecified chronic kidney disease; K56.7 Ileus, unspecified; J44.9 Chronic obstructive pulmonary disease, unspecified; K74.60 Unspecified cirrhosis of liver; F17.210 Nicotine dependence, cigarettes, uncomplicated; E16.2 Hypoglycemia, unspecified; E87.5 Hyperkalemia; D63.1 Anemia in chronic kidney disease; E83.9 Disorder of mineral metabolism, unspecified; Z86.19 Personal history of other infectious and parasitic diseases; Z96.651 Presence of right artificial knee joint
CPT/HCPCS: 36415; 71045-TC; 74018; 74250-TC; 80048-TC; 80053-TC; 80076-TC; 81000-TC; 82962-TC; 83605-TC; 83615-TC; 83690-TC; 85025-TC; 85610-TC; 87081-TC; G0378; J1170; J1610; J1885; J2270; J2405; J3490; J7030; Q9963; U0002